=== PATIENT | male | born 1950 | race Caucasian/White ===

== ENCOUNTER 2016-12-01 19:53 | Observation (INO) | payer MEDICARE, OTHER ==
[~2016-12-01] VITALS: Ht 177.8 cm; Wt 72.3 kg
[2016-12-01] MEDS ORDERED: NITROGLYCERIN 2% 1 GM OINT PKT TD STA (20:09)
[2016-12-01] MEDS ORDERED: ASPIRIN 81 MG TAB PO STA (20:09)
[2016-12-01] MEDS ORDERED: NICARDipine HCL 30 MG CAPSULE PO ONE (20:30)
[2016-12-01] MEDS ORDERED: NITROGLYCERIN (SL) 0.4 MG TAB SL PRN (20:30)
[2016-12-01 20:38] LABS: BASOPHILS % 0.5 % (0.0-2.0); EOSINOPHILS # 0.1 10^3/ul (0.0-0.5); EOSINOPHILS % 2.4 % (0.0-7.0); HEMATOCRIT 36.5 % (42.0-52.0); HEMOGLOBIN 12.3 g/dl (14.0-18.0); LYMPHOCYTES # 1.1 10^3/ul (0.8-2.9); LYMPHOCYTES % 18.5 % (15.0-51.0); MEAN CORPUSCULAR HGB CONC 33.5 g/dl (32.0-37.0); MEAN CORPUSCULAR VOLUME 95.4 fl (82.0-101.0); MEAN PLATELET VOLUME 7.3 fl (7.4-10.4); MONOCYTE # 0.5 10^3/ul (0.3-0.9); MONOCYTES % 8.5 % (0.0-11.0); NEUTROPHIL # 4.4 10^3/ul (1.6-7.5); NEUTROPHILS % 70.1 % (39.0-77.0); PLATELET COUNT 207 10^3/UL (140-440); RED BLOOD COUNT 3.83 10^6/ul (4.70-6.10); RED CELL DISTRIBUTION WIDTH 13.8 % (11.5-14.5); UNCORRECTED WBC 6.2 10^3/ul (4.8-10.8); WHITE BLOOD COUNT 6.2 10^3/ul (4.8-10.8)
[2016-12-01] MEDS ORDERED: AMIO200T2 PO (20:39)
[2016-12-01] MEDS ORDERED: ALDS PO (20:40)
[2016-12-01] MEDS ORDERED: CARV25TA79 PO (20:40)
[2016-12-01] MEDS ORDERED: BENA10TA48 PO (20:40)
[2016-12-01 20:41] LABS: CONDITION 1
[2016-12-01] MEDS ORDERED: RIVA20TA PO (20:41)
[2016-12-01 20:43] LABS: INR 0.97; PROTIME 12.9 Sec (12.2-14.2)
[2016-12-01 20:44] LABS: PARTIAL THROMBOPLASTIN TIME 28.7 Sec (25.0-35.0)
--- NOTE | 2016-12-01 20:44 | RADRPT ---
PROCEDURE: XR Chest. CLINICAL INDICATION: Chest pain. TECHNIQUE: Single frontal view of the chest was obtained COMPARISON: 07/21/2007. FINDINGS: Left anterior chest wall single chamber cardiac pacer, with abandoned lead tip over the right atrium . Active lead tip is also over the right atrium, and pacing lead appears intact. Cardiac pacer has been exchanged over interval since 07/21/2007. Cardiomegaly. Hyperinflation of likely COPD with changes of centrolobular emphysema. Lungs are otherwise clear. N odular density over the left heart border likely represents a nipple shadow. There is no pleural effusion or pneumothorax. IMPRESSION: No acute disease. RPTAT: [facility] Physician Christina Date Time Electronically viewed and signed by Physician Christina on 12/01/2016 20:44 RS/
[2016-12-01 20:55] LABS: POTASSIUM 4.1 mmol/L (3.5-5.1)
[2016-12-01 20:58] LABS: CREATININE 1.55 mg/dl (0.61-1.24)
[2016-12-01 20:59] LABS: CALCIUM 9.2 mg/dl (8.4-10.2)
[2016-12-01 21:10] LABS: TROPONIN-I 0.024 ng/ml (0.00-0.12)
[2016-12-01] MEDS ORDERED: LABETALOL HCL 20MG INJ IV ONE (21:30)
[2016-12-01] MEDS ORDERED: ACETAMINOPHEN 325 MG TAB PO PRN (21:30)
[2016-12-01] MEDS ORDERED: ONDANSETRON 4 MG INJ IV PRN (21:30)
[2016-12-01] MEDS ORDERED: morphine 4 MG/ML VIAL IV STA (21:50)
[2016-12-01] MEDS ORDERED: ONDANSETRON 4 MG INJ IV STA (21:50)
--- NOTE | 2016-12-01 22:09 | ERA ---
ER Documentation Chief Complaint Date/Time DATE: 12/01/16 TIME: 22:06 Chief Complaint bib ra c/o foot pain, now adds c/o Chest tightness, nausea HPI Patient is a 65-year-old male with coronary disease and smoking who presents with chest pain and shortness of breath. The patient was brought in by ambulance. The symptoms started yesterday. He recently lost his place to stay and for the past few days has been homeless. He has bilateral feet pain. He has no treatment as of yet. He does have previous cardiac surgery with AICD placement. ROS All systems reviewed and are negative except as per history of present illness. Medications Home Meds Reported Medications Rivaroxaban* (Xarelto*) 20 Mg Tablet, 20 MG PO WITH DINNER, TAB 12/01/16 Carvedilol* (Carvedilol*) 25 Mg Tablet, 25 MG PO BID, #60 TAB 12/01/16 Benazepril Hcl* (Benazepril Hcl*) 10 Mg Tablet, 10 MG PO BID, #60 TAB 12/01/16 Spironolactone* (Aldactone*) 5 Mg/Ml (COMPOUNDED) Susp, 2.5 MG PO DAILY for 30 Days, BOTTLE (COMPOUNDED) 12/01/16 Amiodarone Hcl* (Amiodarone Hcl*) 200 Mg Tablet, 200 MG PO DAILY, #30 TAB 12/01/16 Allergies Allergies: Coded Allergies: No Known Drug Allergy (Verified Allergy, Mild, 12/01/16) PMhx/Soc History of Surgery: Yes (pacemaker) Anesthesia Reaction: No Hx Cardiac Disorders: Yes (implanted pacemaker/defibrilator, htn) Hx Miscellaneous Medical Probl: Yes (Hep C) Hx Alcohol Use: Yes (once per month) 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 Neck: Full range of motion..~ No meningismus. Resp: Clear to auscultation bilaterally Cardio: Regular rate and rhythm, no murmurs Abd: Soft, non tender, non distended. Normal bowel sounds Skin: No petechiae or rashes Back: No midline or flank tenderness Ext: No cyanosis, or edema Neur: Awake and alert Psych: Normal Mood and Affect Result Diagram: 12/01/16202212/01/162022 Results 24 hrs Laboratory Tests Test 12/01/16 20:23 Activated Partial Thromboplast Time 28.7Sec Anion Gap 15 Basophils # 0.010^3/ul Basophils % 0.5% Blood Morphology Comment Blood Urea Nitrogen 28mg/dl Calcium Level 9.2mg/dl Carbon Dioxide Level 27mmol/L Chloride Level 105mmol/L Creatinine 1.55mg/dl Eosinophils # 0.110^3/ul Eosinophils % 2.4% Glucose Level 92mg/dl Hematocrit 36.5% Hemoglobin 12.3g/dl INR International Normalized Ratio 0.97 Lymphocytes # 1.110^3/ul Lymphocytes % 18.5% Mean Corpuscular Hemoglobin 32.0pg Mean Corpuscular Hemoglobin Concent 33.5g/dl Mean Corpuscular Volume 95.4fl Mean Platelet Volume 7.3fl Monocytes # 0.510^3/ul Monocytes % 8.5% Neutrophils # 4.410^3/ul Neutrophils % 70.1% Nucleated Red Blood Cells # 0.010^3/ul Nucleated Red Blood Cells % 0.0/100WBC Platelet Count 34700^3/UL Potassium Level 4.1mmol/L Prothrombin Time 12.9Sec Prothrombin Time Ratio 1.0 Red Blood Count 3.8310^6/ul Red Cell Distribution Width 13.8% Sodium Level 143mmol/L Troponin I 0.024ng/ml White Blood Count 6.210^3/ul Current Medications Medications (Trade) Dose Ordered Sig/Bandar Route PRN Reason Start Time Stop Time Status Last Admin Dose Admin Nicardipine HCl (Cardene) 30 mg ONCE ONCE PO 12/01/16 20:30 12/01/16 20:31 DC 12/01/16 21:16 Aspirin (Aspirin) 162 mg ONCE STAT PO 12/01/16 20:09 12/01/16 20:10 DC 12/01/16 21:17 Nitroglycerin (Nitroglycerin 2% Oint) 1 inch ONCE STAT TD 12/01/16 20:09 12/01/16 20:10 DC 12/01/16 21:16 Nitroglycerin (Nitroglycerin (Sl Tab) 0.4 Mg) 1 tab Q5M UP TO 3 DOSES PRN SL CHEST PAIN 12/01/16 20:30 Labetalol HCl (Labetalol) 20 mg ONCE ONCE IV 12/01/16 21:30 12/01/16 21:31 DC Ondansetron HCl (Zofran Inj) 4 mg ER BRIDGE PRN IV NAUSEA AND/OR VOMITING 12/01/16 21:30 12/02/16 21:29 Acetaminophen (Tylenol Tab) 650 mg ER BRIDGE PRN PO MILD PAIN/FEVER 12/01/16 21:30 12/02/16 21:29 Morphine Sulfate (morphine) 4 mg ONCE STAT IV 12/01/16 21:50 12/01/16 21:51 DC 12/01/16 22:01 Ondansetron HCl (Zofran Inj) 4 mg ONCE STAT IV 12/01/16 21:50 12/01/16 21:51 DC 12/01/16 22:01 Procedures/MDM EKG #1 read by me: Rate/Rhythm: Regular rate and rhythm at a rate of 72 Intervals: Normal Impression: Biphasic T waves in V2 and V3 concerning for ischemia EKG #2 read by me: Rate/Rhythm: Paced rhythm at a rate of 70 Intervals: Normal Impression: Paced rhythm with negative Sgarbossa criteria Chest x-ray negative per radiology. Smoking Cessation Therapy: Pt. was lectured for greater than 3 minutes on the health risks of continued smoking and the benefits of cessation. Patient is a 65-year-old male with coronary disease and smoking who presents with chest pain. He feels like there is a elephant sitting on his chest. Given his age and cardiac risk factors I am concerned about possible acute ischemia. Initial troponin is within normal limits. The patient will be admitted to a telemetry bed under the care of Dr. Garner. The patient was given aspirin, nitroglycerin, and morphine. At this point I doubt pneumonia, pneumothorax, pulmonary embolism, or aortic dissection. I am concerned for acute coronary syndrome. The patient also has acute hypertension. I initially ordered labetalol but the blood pressure had improved upon recheck and this was held. Departure Diagnosis: Primary Impression: Chest pain Qualified Code: R07.9 - Chest pain, unspecified type Additional Impression: Hypertension Qualified Code: I10 - Essential hypertension Condition: MP Tran MD Dec 01, 2016 22:09
[2016-12-02] VITALS (11 sets, daily range): BP systolic 94–132; BP diastolic 50–70; PULSE 62–73; RESP 17–22; Ht 177.8 cm; Wt 72.3 kg
[2016-12-02] MEDS ORDERED: ACETAMINOPHEN 325 MG TAB PO PRN (02:30)
[2016-12-02] MEDS ORDERED: hydrALAzine 20 MG INJ IV PRN (02:30)
[2016-12-02 03:01] LABS: BASOPHILS % 0.4 % (0.0-2.0); CONDITION 1; EOSINOPHILS # 0.2 10^3/ul (0.0-0.5); HEMATOCRIT 34.4 % (42.0-52.0); HEMOGLOBIN 11.5 g/dl (14.0-18.0); LYMPHOCYTES # 1.5 10^3/ul (0.8-2.9); LYMPHOCYTES % 27.8 % (15.0-51.0); MEAN CORPUSCULAR HEMOGLOBIN 31.8 pg (29.0-33.0); MEAN CORPUSCULAR HGB CONC 33.5 g/dl (32.0-37.0); MEAN CORPUSCULAR VOLUME 94.9 fl (82.0-101.0); MEAN PLATELET VOLUME 7.2 fl (7.4-10.4); MONOCYTE # 0.5 10^3/ul (0.3-0.9); MONOCYTES % 9.3 % (0.0-11.0); NEUTROPHIL # 3.1 10^3/ul (1.6-7.5); NEUTROPHILS % 59.5 % (39.0-77.0); PLATELET COUNT 204 10^3/UL (140-440); RED BLOOD COUNT 3.62 10^6/ul (4.70-6.10); RED CELL DISTRIBUTION WIDTH 13.6 % (11.5-14.5); UNCORRECTED WBC 5.3 10^3/ul (4.8-10.8); WHITE BLOOD COUNT 5.3 10^3/ul (4.8-10.8)
[2016-12-02 03:27] LABS: TROPONIN-I 0.021 ng/ml (0.00-0.12)
[2016-12-02 03:43] LABS: POTASSIUM 3.9 mmol/L (3.5-5.1)
[2016-12-02 03:45] LABS: CK-MB 2.78 ng/ml (0.0-2.4); CREATININE 1.29 mg/dl (0.61-1.24)
[2016-12-02 03:46] LABS: CHOL/HDL RATIO 2.2 RATIO; MAGNESIUM 1.6 mg/dl (1.7-2.5); PHOSPHORUS 3.1 mg/dl (2.5-4.9)
[2016-12-02 04:19] LABS: THYROID STIMULATING HORMONE 4.78 MIU/L (0.465-4.680)
[2016-12-02 06:02] LABS: CALCIUM 8.8 mg/dl (8.4-10.2)
--- NOTE | 2016-12-02 06:15 | HP ---
Date/Time of Note Date/Time of Note DATE: 12/02/16 TIME: 05:57 Assessment/Plan VTE Prophylaxis VTE Prophylaxis Intervention: LMWH Lines/Catheters IV Catheter Type (from Nrsg): Saline Lock Assessment/Plan Assessment/Plan IMPRESSION 1. Chest Pain with abnormal EKG 2. Hx of Probable CAD 3. Hypertensive Urgency 4. Pacemaker 5. CKD 6. 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 SW consult for homelessness HPI/ROS Admit Date/Time Admit Date/Time Dec 01, 2016 at 21:20 Hx of Present Illness Patient is a 65-year-old male with CAD, HTN, AICD, smoking Hep C and Heroin use (last 18 years ago) who presents with chest pain, shortness of breath and pain in both of his feet. The symptoms started yesterday. Chest pain is described as sharp and tightness. SOB is somehow worse with exertion. Denied N/V, diaphoresis , fever, chills. He recently lost his place to stay and for the past few days has been homeless. ER Course: BP 198/90 rest of vitals WNL. First trop neg and first EKG showed Biphasic T waves in V2 and V3. Was given 30mg of oral cardene, ASA and NTG. CXR no acute findings. . . PMH/Family/Social Past Medical History Medical History: coronary artery disease, hypertension Past Surgical History Past Surgical Hx: other (AICD) Social History Alcohol Use: occasionally Smoking Status: Current every day smoker Drug Use: other (Heroin 18 years ago) Exam/Review of Systems Vital Signs Vitals Vital Signs Date Time Temp Pulse Resp B/P Pulse Ox O2 Delivery O2 Flow Rate FiO2 12/02/16 04:55 64 12/02/16 04:00 98.3 20 132/63 98 12/02/16 01:40 Room Air Intake and Output 12/01/16 12/01/16 12/02/16 15:00 23:00 07:00 Intake Total 240 ml Output Total 250 ml Balance -10 ml Exam Constitutional: alert, oriented, well developed Head: atraumatic, normocephalic Eyes: EOMI, PERRL Respiratory: clear to auscultation, normal air movement Cardiovascular: nl pulses, regular rate and rhythm Gastrointestinal: non-tender, soft Extremities: normal pulses Labs Result Diagram: 12/02/1624412/02/16244 Medications Medications Current Medications Amiodarone HCl (Cordarone) 200 mg DAILY PO ; Start 12/02/16 at 09:00 Benazepril HCl (Lotensin) 10 mg BID PO ; Start 12/02/16 at 09:00 Carvedilol (Coreg) 25 mg BID PO ; Start 12/02/16 at 09:00 Spironolactone (Aldactone Susp (Ped)) 2.5 mg DAILY PO ; Start 12/02/16 at 09:00 Atorvastatin Calcium (Lipitor) 20 mg HS PO ; Start 12/02/16 at 21:00 Aspirin (Aspirin) 81 mg DAILY PO ; Start 12/02/16 at 09:00 Acetaminophen (Tylenol Tab) 650 mg Q6H PRN PO PAIN AND OR ELEVATED TEMP; Start 12/02/16 at 02:30 Famotidine (Pepcid) 20 mg BID PO ; Start 12/02/16 at 09:00 Hydralazine HCl (Apresoline) 10 mg Q4H PRN IV SBP > 160; Start 12/02/16 at 02:30 ARNOLD WOOD MD Dec 02, 2016 06:08
[2016-12-02] MEDS: ASPIRIN 81 MG TAB PO SCH (08:06)
[2016-12-02] MEDS: AMIODARONE 200 MG TAB PO SCH (08:06)
[2016-12-02] MEDS: SPIRONOLACTONE (5 MG/ML PO SYG) PO SCH (08:06)
[2016-12-02] MEDS ORDERED: FAMOTIDINE 20 MG TAB PO SCH (09:00)
[2016-12-02] MEDS ORDERED: BENAZEPRIL 10 MG TAB PO SCH (09:00)
[2016-12-02 09:54] LABS: TROPONIN-I 0.025 ng/ml (0.00-0.12)
[2016-12-02 09:55] LABS: CK-MB 2.75 ng/ml (0.0-2.4)
--- NOTE | 2016-12-02 14:30 | PN ---
Date/Time of Note Date/Time of Note DATE: 12/02/16 TIME: 14:16 Assessment/Plan VTE Prophylaxis VTE Prophylaxis Intervention: other (xarelto) Lines/Catheters IV Catheter Type (from Nrsg): Saline Lock Assessment/Plan Assessment/Plan 1. Chest Pain, follow up with cardiology 2. Normal coronary angiography in [facility] about 8-10 years ago per patient 3. Hypertension, low BP today, decrease benazepril 4. s/p AICD 5 Paroxysmal atrial fibrillation, sinus now, on coreg, amiodarone and xarelto 6. CKD, stage 3, follow up with BMP 7. Homeless Subjective 24 Hr Interval Summary Free Text/Dictation still ahving pressure like chest pain at lower retrosternal area Exam/Review of Systems Vital Signs Vitals Vital Signs Date Time Temp Pulse Resp B/P Pulse Ox O2 Delivery O2 Flow Rate FiO2 12/02/16 12:53 62 12/02/16 11:42 97.9 17 94/50 97 12/02/16 01:40 Room Air Intake and Output 12/01/16 12/01/16 12/02/16 15:00 23:00 07:00 Intake Total 240 ml Output Total 250 ml Balance -10 ml Exam Constitutional: alert, oriented, well developed Psych: nl mood/affect, no complaints Head: atraumatic, normocephalic Eyes: EOMI, PERRL, nl conjunctiva, nl lids, nl sclera ENMT: mucosa pink and moist, nl external ears & nose, nl lips & teeth, nl nasal mucosa & septum Neck: non-tender, supple Respiratory: clear to auscultation, normal air movement, No congested cough, No crackles/rales, No diminished breath sounds, No intercostal retraction, No labored breathing, No respirations, No tactile fremitus, No wheezing Cardiovascular: nl pulses, regular rate and rhythm, No S3, No S4, No bruits, No diastolic murmur, No edema, No gallop, No irregular rhythm, No jugular venous distention (JVD), No murmurs/extra sounds, No rub, No systolic murmur Gastrointestinal: nl liver, spleen, non-tender, soft, No ascites, No bowel sounds, No distended, No firm, No hepatomegaly, No mass , No rebound or guarding, No splenomegaly, No surgical scars, No tender Musculoskeletal: nl extremities to inspection Extremities: normal pulses, No calf tenderness, No clubbing, No cyanosis, No edema, No palpable cord, No pitting pedal edema, No tenderness Neurological: COMPUTING SYSTEMS MECHANIC II-XII intact, nl mental status, nl speech, nl strength Skin: nl turgor, rash or lesions Lymph: nl lymph nodes Results Result Diagram: 12/02/16 0245 12/02/16 0245 Results 24 hrs Laboratory Tests Test 12/01/16 20:23 12/02/16 02:45 12/02/16 09:05 Activated Partial Thromboplast Time 28.7 Anion Gap 15 14 Basophils # 0.0 0.0 Basophils % 0.5 0.4 Blood Morphology Comment Blood Urea Nitrogen 28 H 26 H Calcium Level 9.2 8.8 Carbon Dioxide Level 27 27 Chloride Level 105 105 Creatinine 1.55 H 1.29 H Eosinophils # 0.1 0.2 Eosinophils % 2.4 3.0 Glucose Level 92 95 Hematocrit 36.5 L 34.4 L Hemoglobin 12.3 L 11.5 L INR International Normalized Ratio 0.97 Lymphocytes # 1.1 1.5 Lymphocytes % 18.5 27.8 Mean Corpuscular Hemoglobin 32.0 31.8 Mean Corpuscular Hemoglobin Concent 33.5 33.5 Mean Corpuscular Volume 95.4 94.9 Mean Platelet Volume 7.3 L 7.2 L Monocytes # 0.5 0.5 Monocytes % 8.5 9.3 Neutrophils # 4.4 3.1 Neutrophils % 70.1 59.5 Nucleated Red Blood Cells # 0.0 0.0 Nucleated Red Blood Cells % 0.0 0.0 Platelet Count 207 204 Potassium Level 4.1 3.9 Prothrombin Time 12.9 Prothrombin Time Ratio 1.0 Red Blood Count 3.83 L 3.62 L Red Cell Distribution Width 13.8 13.6 Sodium Level 143 142 Troponin I 0.024 0.021 0.025 White Blood Count 6.2 5.3 Cholesterol Level 136 Cholesterol/HDL Ratio 2.2 Creatine Kinase 134 121 Creatine Kinase Index 2.1 2.3 Creatinine Kinase MB (Mass) 2.78 H 2.75 H HDL Cholesterol 60 Hemoglobin A1c 6.1 H LDL Cholesterol, Calculated 71 Magnesium Level 1.6 L Phosphorus Level 3.1 Thyroid Stimulating Hormone (TSH) 4.780 H Triglycerides Level 26 Medications Medications Current Medications Amiodarone HCl (Cordarone) 200 mg DAILY PO Last administered on 12/02/16 08:06 ; Admin Dose 200 MG; Start 12/02/16 at 09:00 Benazepril HCl (Lotensin) 10 mg BID PO Last administered on 12/02/16 08:05; Admin Dose 10 MG; Start 12/02/16 at 09:00 Carvedilol (Coreg) 25 mg BID PO Last administered on 12/02/16 08:06; Admin Dose 25 MG; Start 12/02/16 at 09:00 Spironolactone (Aldactone Susp (Ped)) 2.5 mg DAILY PO Last administered on 08:06; Admin Dose 2.5 MG; Start 12/02/16 at 09:00 Atorvastatin Calcium (Lipitor) 20 mg HS PO ; Start 12/02/16 at 21:00 Aspirin (Aspirin) 81 mg DAILY PO Last administered on 12/02/16 08:06; Admin Dose 81 MG; Start 12/02/16 at 09:00 Acetaminophen (Tylenol Tab) 650 mg Q6H PRN PO PAIN AND OR ELEVATED TEMP; Start 12/02/16 at 02:30 Famotidine (Pepcid) 20 mg BID PO Last administered on 12/02/16 08:07; Admin Dose 20 MG; Start 12/02/16 at 09:00 Hydralazine HCl (Apresoline) 10 mg Q4H PRN IV SBP > 160; Start 12/02/16 at 02:30 HA AWAN MD Dec 02, 2016 14:28
--- NOTE | 2016-12-02 15:10 | CONS ---
DATE OF ADMISSION: 12/01/2016 DATE OF CONSULTATION: 12/02/2016 REASON FOR CONSULTATION: Chest pain, assess for acute coronary syndrome. REQUESTING PHYSICIAN: Dr. Garner from the hospitalist service. HISTORY OF PRESENT ILLNESS: Mr. Haney is a 65-year-old male with a history of coronary artery disease, hypertension, permanent pacemaker, question ICD per chart biopsy, who initially presented with complaints of chest pain, shortness of breath, pain in his feet. Upon arrival, temperature 98.9, blood pressure 198 /90, pulse 79, respirations 20, saturating 98%. The patient's labs revealed a white count of 143, potassium 4.1, creatinine 1.55, BUN of 28, troponin negative. TSH of 4.78. LDL 71, HDL 60. White cell count 6.2, hemoglobin 12.3 , platelet count 207. INR 0.97. The patient underwent a chest x-ray revealing left anterior chest wall single chamber cardiac pacemaker, cardiomegaly, hyperinflation, likely consistent with COPD. The patient's electrocardiogram revealed V paced rhythm, rate of 70 ____. The patient subsequently admitted to the floor and since admit to the floor, has had additional troponin negative, 2 negative troponins. The patient continues to complain of intermittent substernal chest pain described as a pressure-like sensation. PAST MEDICAL HISTORY: As above in HPI with the patient additionally being on medications such as Xarelto, concerning for possible cardiac arrhythmia. MEDICATIONS CURRENTLY IN HOSPITAL: 1. Lipitor 20 mg at bedtime. 2. Xarelto 20 mg daily. 3. Amiodarone 10 mg daily. 4. Benazepril 10 mg p.o. b.i.d. 5. Carvedilol 25 mg p.o. b.i.d. 6. Aldactone 2.5 mg daily. 7. Aspirin 81 mg daily. 8. Pepcid 20 mg p.o. b.i.d. 9. Tylenol p.r.n. 10. Hydralazine p.r.n. 11. Sublingual nitroglycerin p.r.n. ALLERGIES: NO KNOWN DRUG ALLERGIES. SOCIAL HISTORY: Positive tobacco. No ETOH or illicit drug use. FAMILY HISTORY: No history of sudden cardiac or early CAD. REVIEW OF SYSTEMS: As above in HPI. CONSTITUTIONAL: No fevers, chills. PULMONARY: Shortness of breath. CARDIOVASCULAR: Chest pain. GASTROINTESTINAL: No vomiting. GENITOURINARY: No hematuria. MUSCULOSKELETAL: Degenerative joint disease. PSYCHIATRIC: No documented psychiatric history. NEUROLOGIC: No documented history of CVA. ENDOCRINE: No documented history of diabetes mellitus. PHYSICAL EXAMINATION: VITAL SIGNS: Temperature 97.7, blood pressure 94/50, pulse 62, respirations 17 , saturating 97%. GENERAL: The patient is alert, awake, in no acute distress. NECK: JVP approximately 8 cm of water. CHEST: Fair movement throughout with mildly decreased breath sounds at bases bilaterally. HEART: Regular rate and rhythm. S1, S2, I/ systolic murmur, nondisplaced PMI. ABDOMEN: Positive bowel sounds, soft. EXTREMITIES: No edema, 1+ pulses bilaterally, posterior tibial. LABORATORY DATA: As above in HPI with most recently from today, white count 5.3 , hemoglobin 11.5, platelet count 204. Sodium 142, potassium ____, creatinine 0.29, BUN of 26. INR 0.97. IMAGING STUDIES: As above in HPI. No further imaging studies for my review at this time. ECG: As above in HPI. No further electrocardiograms for my review at this time. IMPRESSION: 1. Chest pain, assess for acute coronary syndrome. 2. Abnormal electrocardiogram, assess for acute coronary syndrome. 3. History of permanent pacemaker, question AICD. 4. History of cardiac arrhythmia by medications. 5. Ongoing tobacco usage. 6. Hypertension. 7. Dyslipidemia. 8. Anemia. 9. Renal failure. RECOMMENDATIONS: 1. At this time, would maintain the patient on telemetry monitoring to follow rhythm and rate control closely. 2. Would check an additional troponin to assure the patient's chest pain was not due to an acute coronary syndrome such as an acute myocardial infarction. 3. We will continue the patient's baseline amiodarone and Xarelto for possible cardiac arrhythmia. 4. Continue the patient's benazepril and carvedilol control of blood pressure and heart rate. Continue aspirin prophylaxis against cardiovascular events and give patient sublingual nitroglycerin for recurrent episodes of chest pain. 5. Continue the patient's statin therapy and adjust it according to a fasting lipid panel that has to be checked. 6. We will follow the patient's 2D echo for assessment of ejection fraction, wall motion and any major abnormalities. 7. Given patient's comorbid risk factors, I believe the patient will benefit from further inpatient risk stratification with an inpatient Lexiscan stress test. Thank you for allowing me to take part in the care of this patient. I will continue to follow very closely with you with further recommendations to be made as the patient progresses through his inpatient hospital clinical course. Dictated By: GERDA ESPINOSA/VIANCA Conf#: [id number] DID#: [id number] CC: ARNOLD GARNER MD;*EndCC* MTDD
[2016-12-02 15:30] LABS: POTASSIUM 4.2 mmol/L (3.5-5.1)
[2016-12-02 15:32] LABS: CREATININE 1.46 mg/dl (0.61-1.24)
[2016-12-02 15:33] LABS: CALCIUM 8.9 mg/dl (8.4-10.2)
[2016-12-02] MEDS ORDERED: RIVAROXABAN 20 MG TABLET PO SCH (17:55)
--- NOTE | 2016-12-02 20:15 | RADRPT ---
Echocardiogram Report Patient Name: DYLON HASSAN Gender: Male Date: 1950 Study Date: 02-Dec-2016 Holistic Nutritionist: Brayan Cruz [facility] Location: 522 Ref. Physician: ARNOLD WOOD Quality: Good Procedures: Transthoracic echocardiogram with complete 2D, M-Mode, and doppler examination. Indications: Chest Pain. 2D/M Mode Doppler Measurement Value Normal Ranges Measurement Value Normal Ranges LVIDd 2D 6.3 3.5 - 5.6 cm AV Peak Mp 1.9 m/sec LVIDs 2D 4.4 2.1 - 4.1 cm AV Peak PG 13.9 mmHg LVPWd 2D 0.9 0.6 - 1.1 cm LVOT Peak Mp 1.3 m/sec IVSd 2D 0.9 0.6 - 1.1 cm LVOT Peak PG 6.5 mmHg AoR Diam 2D 3.1 2.0 - 3.7 cm MV E Peak Mp 0.7 m/sec EDV 2D 204.4 cm3 MV A Peak Mp 0.5 m/sec ESV 2D 84.7 cm3 MV E/A 1.6 LA Dimen 2D 4.7 2.3 - 4.0 cm MV Decel Time 373 msec MV Decel Drew 2 MV E/A 1.6 TR Peak Mp 3.1 m/sec TR Peak PG 39.5 mmHg RVSP 43.0 mmHg Findings Left Ventricle: Normal left ventricular wall thickness. Mild enlargement of left ventricle cavity. Moderate global left ventricular systolic dysfunction. Ejection fraction is visually estimated at 3540 %. Right Ventricle: Pacemaker right heart. Left Atrium: There is moderate enlargement of left atrium. Right Atrium: There is moderate enlargement of right atrium. Linear artifact in right atrium suggestive of pacer lead or ICD lead. Mitral Valve: Mitral valve leaflets appear mildly thickened. Trace mitral regurgitation. Aortic Valve: Normal appearance of the aortic valve. No significant aortic stenosis or insufficiency. Tricuspid Valve: Estimated peak PA systolic pressure 43 mmHg. There is moderate tricuspid regurgitation. Pericardium: Normal pericardium with no significant pericardial effusion. Aorta: Normal aortic root. IVC: Normal size and normal respiratory collapse consistent with normal right atrial pressure. Conclusions 1.Normal left ventricular wall thickness. Mild enlargement of left ventricle cavity. Moderate global left ventricular systolic dysfunction. Ejection fraction is visually estimated at 35-40 %. 2.Pacemaker right heart. 3.There is moderate enlargement of left atrium. 4.There is moderate enlargement of right atrium. Linear artifact in right atrium suggestive of pacer lead or ICD lead. 5.Mitral valve leaflets appear mildly thickened. Trace mitral regurgitation. 6.Estimated peak PA systolic pressure 43 mmHg. There is moderate tricuspid regurgitation. Electronically Signed By: Abdias Palacio 02-Dec-2016 20:14:17 -0800 Patient Name: DYLON HASSAN Study Date: 02-Dec-[id number]
[2016-12-02] MEDS ORDERED: ATORVASTATIN 20 MG TAB PO SCH (21:00)
[2016-12-03] VITALS (8 sets, daily range): BP systolic 127–144; BP diastolic 62–82; PULSE 63–76; RESP 18–22
[2016-12-03] MEDS ORDERED: PANTOPRAZOLE (EC) 40 MG TAB PO SCH (06:00)
[2016-12-03 06:32] LABS: CHOL/HDL RATIO 2.6 RATIO
[2016-12-03 06:44] LABS: TROPONIN-I 0.018 ng/ml (0.00-0.12)
[2016-12-03] MEDS: ASPIRIN 81 MG TAB PO SCH (08:19)
[2016-12-03] MEDS: SPIRONOLACTONE (5 MG/ML PO SYG) PO SCH (08:19)
[2016-12-03] MEDS: AMIODARONE 200 MG TAB PO SCH (08:20)
[2016-12-03] MEDS ORDERED: BENAZEPRIL 10 MG TAB PO SCH (09:00)
[2016-12-03] MEDS ORDERED: REGADENOSON 0.4 MG/5 ML SYG ONE (10:36)
--- NOTE | 2016-12-03 11:16 | CONS ---
Date/Time of Note Date/Time of Note DATE: 12/03/16 TIME: 11:11 Assessment/Plan Assessment/Plan Chief Complaint/Hosp Course IMPRESSION: 1. Chest pain, assess for acute coronary syndrome.-negative tropnin x 3 2. Abnormal electrocardiogram, assess for acute coronary syndrome. 3. History of permanent pacemaker, question AICD. 4. History of cardiac arrhythmia by medications. 5. Ongoing tobacco usage. 6. Hypertension. 7. Dyslipidemia. 8. Anemia. 9. Renal failure. Recc: -Tele -serial ecg's -Continue asa/statin -Continue benazepril -Continue xarelto/amio -Lexiscan stress test today Problems: Consultation Date/Type/Reason Admit Date/Time Dec 01, 2016 at 21:20 Initial Consult Date 12/02/2016 Type of Consultation: Cardiology Reason for Consultation Chest pain Referring Provider: ARNOLD WOOD MD Exam/Review of Systems Vital Signs Vitals Vital Signs Date Time Temp Pulse Resp B/P Pulse Ox O2 Delivery O2 Flow Rate FiO2 12/03/16 08:28 76 12/03/16 07:21 98.3 18 141/77 99 12/02/16 01:40 Room Air Intake and Output 12/02/16 12/02/16 12/03/16 15:00 23:00 07:00 Intake Total 700 ml Balance 700 ml Exam Review of Systems: CONSTITUTIONAL: No fevers, chills. PULMONARY: No sob CARDIOVASCULAR: N intermittent chest pain GASTROINTESTINAL: No nausea/vomiting. GENITOURINARY: No hematuria/dysuria. MUSCULOSKELETAL: No myagias/arthalgias. PSYCHIATRIC: The patient denies depression. NEUROLOGIC: No weakness Constitutional: alert, oriented Psych: no complaints Head: normocephalic ENMT: mucosa pink and moist Neck: jvd (8 cm water), supple Respiratory: clear to auscultation Cardiovascular: regular rate and rhythm Gastrointestinal: non-tender, soft Musculoskeletal: muscle tone (normal) Extremities: other (No focal deficits) Results Result Diagram: 12/02/16 0245 12/02/16 1500 Results 24 hrs Laboratory Tests Test 12/02/16 15:00 12/03/16 05:55 Anion Gap 11 Blood Urea Nitrogen 24 H Calcium Level 8.9 Carbon Dioxide Level 27 Chloride Level 105 Creatinine 1.46 H Glucose Level 114 Potassium Level 4.2 Sodium Level 139 Cholesterol Level 145 Cholesterol/HDL Ratio 2.6 HDL Cholesterol 54 LDL Cholesterol, Calculated 74 Triglycerides Level 83 Troponin I 0.018 Medications Medications Current Medications Amiodarone HCl (Cordarone) 200 mg DAILY PO Last administered on 12/03/16 08:20 ; Admin Dose 200 MG; Start 12/02/16 at 09:00 Spironolactone (Aldactone Susp (Ped)) 2.5 mg DAILY PO Last administered on 08:19; Admin Dose 2.5 MG; Start 12/02/16 at 09:00 Atorvastatin Calcium (Lipitor) 20 mg HS PO Last administered on 12/02/16 20:55 ; Admin Dose 20 MG; Start 12/02/16 at 21:00 Aspirin (Aspirin) 81 mg DAILY PO Last administered on 12/03/16 08:19; Admin Dose 81 MG; Start 12/02/16 at 09:00 Acetaminophen (Tylenol Tab) 650 mg Q6H PRN PO PAIN AND OR ELEVATED TEMP; Start 12/02/16 at 02:30 Hydralazine HCl (Apresoline) 10 mg Q4H PRN IV SBP > 160; Start 12/02/16 at 02:30 Benazepril HCl (Lotensin) 10 mg DAILY PO Last administered on 12/03/16 08:20; Admin Dose 10 MG; Start 12/03/16 at 09:00 Pantoprazole (Protonix Tab) 40 mg DAILY@06 PO Last administered on 12/03/16 05: 54; Admin Dose 40 MG; Start 12/03/16 at 06:00 GERDA ACKERMAN Dec 03, 2016 11:16
--- NOTE | 2016-12-03 13:01 | RADRPT ---
PROCEDURE: Lexiscan myocardial perfusion study CLINICAL INDICATION: 65 -year-old patient complaining of chest pain. TECHNIQUE: Lexiscan 0.4 mg intravenously separate acquisition gated myocardial perfusion SPECT usi ng Tc 99m Myoview 30.8 mCi intravenously at stress and Tc-99m Myoview, 9.6 mCi intravenously at rest was performed using the rest/stress sequence. Poststress Myoview SPECT images were obtained in the supine position. COMPARISON: No prior studies. FINDINGS: Perfusion images reveal mild nonreversible perfusion abnormality in the inferior wall. Lexiscan post stress gated SPECT images demonstrate moderate hypokinesis of the left ventricle. IMPRESSION: 1. No evidence of stress-induced ischemia. 2. Moderate hypokinesis of the left ventricle. 3. The left ventricle ejection fraction at stress is 34%. A call report was made to Dr. Palacio at 01:00 p.m. on December 03, 2016. RPTAT: HH .Ember Carson MD, MD Date Time Electronically viewed and signed by .Ember Carson MD, on 12/03/2016 13:00 .Christopher/
[2016-12-03] MEDS ORDERED: PANT40TA4 PO (14:30)
[2016-12-03] MEDS ORDERED: CARV3.1260 PO (14:30)
--- NOTE | 2016-12-03 14:40 | DS ---
Date/Time of Note Date/Time of Note DATE: 12/03/16 TIME: 14:31 Discharge Summary Admission/Discharge Info Admit Date/Time Dec 01, 2016 at 21:20 Discharge Date/Time Final Diagnosis 1. Chest Pain, negative stress test for ischemia 2. Congestive heart failure, systolic, chronic, stable, follow up with cardiology 3. Hypertension, low BP today, decrease benazepril 4. s/p AICD 5 Paroxysmal atrial fibrillation, sinus now, on coreg, amiodarone and xarelto 6. CKD, stage 3, follow up with PCP Patient Condition: Stable Procedures [place] [id number] Radiology Main Line: [phone] DIAGNOSTIC IMAGING REPORT Patient: DYLON HASSAN : 1950 Age: 65 Sex: M MR #: [id number] DOS: 12/03/16 1100 Ordering MD: GERDA PALACIO MD Location: [facility] PROCEDURE: Lexiscan myocardial perfusion study CLINICAL INDICATION: 65 -year-old patient complaining of chest pain. TECHNIQUE: Lexiscan 0.4 mg intravenously separate acquisition gated myocardial perfusion SPECT using Tc 99m Myoview 30.8 mCi intravenously at stress and Tc-99m Myoview, 9.6 mCi intravenously at rest was performed using the rest/stress sequence. Poststress Myoview SPECT images were obtained in the supine position. COMPARISON: No prior studies. FINDINGS: Perfusion images reveal mild nonreversible perfusion abnormality in the inferior wall. Lexiscan post stress gated SPECT images demonstrate moderate hypokinesis of the left ventricle. IMPRESSION: 1. No evidence of stress-induced ischemia. 2. Moderate hypokinesis of the left ventricle. 3. The left ventricle ejection fraction at stress is 34%. A call report was made to Dr. Palacio at 01:00 p.m. on December 03, 2016. RPTAT: HH .Ember Carson MD, MD Date Time Electronically viewed and signed by .Ember Carson MD, MD on 12/03/2016 13:00 .L/ CC: GERDA PALACIO of Present Illness . . Hospital Course 65 years old male with congestive heart failure but a normal coronary angiography about 8-10 years ago came in with retrosternal pressure like chest pain. Patient has negative troponin and no ischemia on stress thallium test. Both echo and stress thallium showed decreased LVEF, 34% on stress test. Patient is on appropriate treatment for congestive heart failure. I started him on protonix yesterday. Chest pain is much less according to the patient. 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 Home Meds Active Scripts Carvedilol* (Carvedilol*) 3.125 Mg Tablet, 3.125 MG PO BID for 60 Days, TAB Prov:HA AWAN MD 12/03/16 Pantoprazole* (Pantoprazole*) 40 Mg Tablet.dr, 40 MG PO DAILY@06 for 30 Days Prov:HA AWAN MD 12/03/16 Reported Medications Rivaroxaban* (Xarelto*) 20 Mg Tablet, 20 MG PO WITH DINNER, TAB 12/01/16 Carvedilol* (Carvedilol*) 25 Mg Tablet, 25 MG PO BID, #60 TAB 12/01/16 Benazepril Hcl* (Benazepril Hcl*) 10 Mg Tablet, 10 MG PO BID, #60 TAB 12/01/16 Spironolactone* (Aldactone*) 5 Mg/Ml (COMPOUNDED) Susp, 2.5 MG PO DAILY for 30 Days, BOTTLE (COMPOUNDED) 12/01/16 Amiodarone Hcl* (Amiodarone Hcl*) 200 Mg Tablet, 200 MG PO DAILY, #30 TAB 12/01/16 Follow-up Plan cardiology 1 week PCP 1 week Pending Labs Laboratory Tests Test 12/02/16 15:00 12/03/16 05:55 Anion Gap 11 (8-16) Blood Urea Nitrogen 24mg/dl (7-20) Calcium Level 8.9mg/dl (8.4-10.2) Carbon Dioxide Level 27mmol/L (21-31) Chloride Level 105mmol/L (97-110) Creatinine 1.46mg/dl (0.61-1.24) Glucose Level 114mg/dl (70-220) Potassium Level 4.2mmol/L (3.5-5.1) Sodium Level 139mmol/L (135-144) Cholesterol Level 145mg/dl (100-200) Cholesterol/HDL Ratio 2.6RATIO HDL Cholesterol 54mg/dl (30-78) LDL Cholesterol, Calculated 74mg/dl Triglycerides Level 83mg/dl (0-149) Troponin I 0.018ng/ml (0.00-0.12) HA AWAN MD Dec 03, 2016 14:40
--- NOTE | 2016-12-03 16:01 | CARRPT ---
DATE OF PROCEDURE: 12/03/2016 REASON FOR STRESS TESTING: Chest pain, assess for ischemia. BASELINE VITAL SIGNS AND ELECTROCARDIOGRAM: Pulse of 70, blood pressure 165/95. Electrocardiogram reveals sinus rhythm, first-degree AV block, right superior axis deviation with secondary repolariz ation abnormalities. PROCEDURE: The patient underwent standard Lexiscan infusion protocol over 10 seconds followed by ra diolabeled tracer. The patient's test was stopped due to completion of protocol. Maximal achieved blood pressure during the test 142/74. Maximum heart rate during the test 70. ELECTROCARDIOGRAM FINDINGS: During stress testing patient's rhythm became paced; therefore, there were no significant changes. SYMPTOMS: The patient had no complaints of chest pain or shortness of breath during stress testing. IMPRESSION: 1. No Lexiscan-induced ST or T-wave changes from baseline abnormalities that are diagnostic of card iac ischemia. 2. No complaints of chest pain or shortness of breath during stress testing. 3. No documented premature ventricular contractions during stress testing. 4. Report of nuclear images to follow in separate dictation. Dictated By: GERDA ESPINOSA/VIANCA Conf#: [id number] DID#: [id number] CC: ARNOLD WOOD MD;*EndCC*
--- NOTE | 2016-12-03 18:43 | RADRPT ---
Vent Rate: 70 bpm RR Interval: 0 msec KS Interval: 346 msec QRS Duration: 196 msec QT Interval: 474 msec QTC Interval: 511 msec P-R-T Kosse: 47 - 108 - 9 degrees Ventricular paced rhythm Rightward axis Left bundle branch block Abnormal ECG Electronically Signed By: Da Paige [id number]
== END 2016-12-03 16:50 | disposition home or self-care (01) ==
LOC: E/R 19:53 → TEL 21:20
PROVIDERS: ADMIT Internal Medicine; ATTEND Internal Medicine
DX: R07.9 Chest pain, unspecified (principal); R94.31 Abnormal electrocardiogram [ECG] [EKG]; I12.9 Hypertensive chronic kidney disease with stage 1 through stage 4 chronic kidney disease, or unspecified chronic kidney disease; N18.9 Chronic kidney disease, unspecified; Z95.0 Presence of cardiac pacemaker; Z59.0 Homelessness; D64.9 Anemia, unspecified; Z72.0 Tobacco use
CPT/HCPCS: 36415; 71010; 78452; 80048; 80061; 82550; 82553; 83036; 83735; 84100; 84443; 84484; 85025; 85610; 85730; 93005; 93017; 93306; 96374; 96375; 99285; A9500; A9505; G0378; J2270; J2405; J2785

== ENCOUNTER 2016-12-19 02:32 | Emergency (ER) | payer MEDICARE, OTHER ==
[~2016-12-19] VITALS: Ht 180.3 cm; Wt 70.0 kg
[~2016-12-19 02:32] MED LIST: ALDS PO; AMIO200T2 PO; BENA10TA48 PO; CARV25TA79 PO; CARV3.1260 PO; PANT40TA4 PO; RIVA20TA PO
[2016-12-19 02:42] VITALS: Ht 180.3 cm; Wt 70.0 kg
--- NOTE | 2016-12-19 03:03 | RADRPT ---
PROCEDURE: XR Chest. CLINICAL INDICATION: Abdominal Pain TECHNIQUE: 2 frontal chest x-rays COMPARISON: 12/01/2016 FINDINGS: The lungs are clear. No focal opacification is seen. Portable AP technique accentuates the size of the cardiac silhouette. The heart does not appear to be grossly enlarged. There is appearance of s vashti chamber cardiac pacemaker and single chamber ICD leads with battery in the left chest wall aga in seen. Mild degenerative changes at shoulders. ECG leads projected over the chest IMPRESSION: 1. There is no acute cardiopulmonary process. RPTAT: HJES .Guy May MD, MD Date Time Electronically viewed and signed by .Guy May MD, MD on 12/19/2016 03:03 .S/
[2016-12-19 03:42] LABS: BASOPHILS % 0.8 % (0.0-2.0); EOSINOPHILS # 0.2 10^3/ul (0.0-0.5); HEMATOCRIT 38.1 % (42.0-52.0); LYMPHOCYTES # 1.9 10^3/ul (0.8-2.9); LYMPHOCYTES % 33.2 % (15.0-51.0); MEAN CORPUSCULAR HEMOGLOBIN 32.1 pg (29.0-33.0); MEAN CORPUSCULAR VOLUME 94.3 fl (82.0-101.0); MEAN PLATELET VOLUME 7.4 fl (7.4-10.4); MONOCYTE # 0.6 10^3/ul (0.3-0.9); MONOCYTES % 10.4 % (0.0-11.0); NEUTROPHIL # 2.9 10^3/ul (1.6-7.5); NEUTROPHILS % 52.6 % (39.0-77.0); PLATELET COUNT 297 10^3/UL (140-440); RED BLOOD COUNT 4.04 10^6/ul (4.70-6.10); UNCORRECTED WBC 5.6 10^3/ul (4.8-10.8); WHITE BLOOD COUNT 5.6 10^3/ul (4.8-10.8)
[2016-12-19 03:48] LABS: CONDITION 1
[2016-12-19 03:50] LABS: ALBUMIN 4.1 g/dl (3.3-4.9)
[2016-12-19 03:51] LABS: POTASSIUM 3.7 mmol/L (3.5-5.1)
[2016-12-19 03:53] LABS: BILIRUBIN,INDIRECT 0.2 mg/dl (0-1.1); BILIRUBIN,TOTAL 0.2 mg/dl (0.2-1.3); CREATININE 1.64 mg/dl (0.61-1.24)
[2016-12-19 03:54] LABS: ALBUMIN/GLOBULIN RATIO 1.24; CALCIUM 9.2 mg/dl (8.4-10.2); TOTAL PROTEIN 7.4 g/dl (6.1-8.1)
[2016-12-19 04:05] LABS: TROPONIN-I 0.018 ng/ml (0.00-0.12)
--- NOTE | 2016-12-19 04:29 | ERD ---
ER Documentation Chief Complaint Date/Time DATE: 12/19/16 TIME: 04:24 Chief Complaint chest pain x 1 day HPI 65-year-old man with a history of coronary artery disease presents with sharp nonexertional nonradiating chest pain waking him up this morning. 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 Recent workups including nuclear cardiac stress testing was recently negative. Patient denies dizziness or loss of consciousness, no diaphoresis, no cough, no calf or leg swelling, no vomiting or diarrhea. ROS All systems reviewed and are negative except as per history of present illness. Medications Home Meds Active Scripts Carvedilol* (Carvedilol*) 3.125 Mg Tablet, 3.125 MG PO BID for 60 Days, TAB Prov:HA AWAN MD 12/03/16 Pantoprazole* (Pantoprazole*) 40 Mg Tablet.dr, 40 MG PO DAILY@06 for 30 Days Prov:HA AWAN MD 12/03/16 Reported Medications Rivaroxaban* (Xarelto*) 20 Mg Tablet, 20 MG PO WITH DINNER, TAB 12/01/16 Carvedilol* (Carvedilol*) 25 Mg Tablet, 25 MG PO BID, #60 TAB 12/01/16 Benazepril Hcl* (Benazepril Hcl*) 10 Mg Tablet, 10 MG PO BID, #60 TAB 12/01/16 Spironolactone* (Aldactone*) 5 Mg/Ml (COMPOUNDED) Susp, 2.5 MG PO DAILY for 30 Days, BOTTLE (COMPOUNDED) 12/01/16 Amiodarone Hcl* (Amiodarone Hcl*) 200 Mg Tablet, 200 MG PO DAILY, #30 TAB 12/01/16 Allergies Allergies: Coded Allergies: No Known Drug Allergy (Verified Allergy, Mild, 12/01/16) PMhx/Soc Congestive heart failure with a left ventricular ejection fraction of 35%, abnormal EKG with biphasic T waves in leads V2 to V3 and a left bundle branch block, paroxysmal atrial fibrillation, hepatitis C, AICD placement, recurrent chest pain, hypertension, chronic kidney disease, recent cardiac nuclear stress testing which was negative History of Surgery: Yes (Heart surg age 5, 2x AICD placment, Epigastric hernia repair.) Anesthesia Reaction: No Hx Neurological Disorder: No Hx Respiratory Disorders: No Hx Cardiac Disorders: Yes (HTN, Pacemaker/ defibrillator.) Hx Psychiatric Problems: No Hx Miscellaneous Medical Probl: No Hx Alcohol Use: Yes (3-4 beers/ week.) 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.) Hx Tobacco Use: Yes (Cigarettes 1/2 pack a day.) Smoking Status: Former smoker FmHx Family History: No diabetes Physical Exam Vitals Vital Signs Date Time Temp Pulse Resp B/P Pulse Ox O2 Delivery O2 Flow Rate FiO2 12/19/16 05:05 70 17 145/82 99 Room Air 12/19/16 04:44 97.4 71 16 133/77 99 Room Air 12/19/16 02:42 97.2 76 15 142/82 99 Physical Exam GENERAL: Well-developed, well-nourished, well-hydrated, in no apparent distress , looks nontoxic in appearance HEENT: Moist mucous membranes, pink conjunctiva, no cervical spine tenderness or step-off deformities, no goiter, no jaundice or icterus, extraocular movements intact without pain. No submandibular induration, and no pharyngeal erythema NEURO: Alert and oriented 3, cranial nerves II through XII intact bilaterally, pupils equal round reactive to light, no focal deficits or facial asymmetry, sensation intact distally Strength 5/5 in upper and lower extremities bilaterally CARDIAC: Regular rate and rhythm, no murmurs rubs or gallops LUNGS: Clear bilaterally no wheezing crackles or stridor ABDOMEN: Soft nontender, no guarding, no rigidity, no rebound, no psoas sign no obturator sign. Normoactive bowel sounds SKIN: Warm and dry to touch, no abrasions, contusions, or hematomas, no lacerations, no ecchymosis, no target lesions, and without ulcers EXTREMITIES: No clubbing cyanosis or edema, calves are bilaterally symmetrical, no Homans sign, no popliteal cord sign. Distal pulses equal and bilateral PSYCH: Normal affect without agitation or irritability Result Diagram: 12/19/16 0305 12/19/16 030 Results 24 hrs Laboratory Tests Test 12/19/16 03:05 Alanine Aminotransferase (ALT/SGPT) 33IU/L Albumin 4.1g/dl Albumin/Globulin Ratio 1.24 Alkaline Phosphatase 88IU/L Anion Gap 18 Aspartate Amino Transf (AST/SGOT) 34IU/L Basophils # 0.010^3/ul Basophils % 0.8% Blood Urea Nitrogen 25mg/dl Calcium Level 9.2mg/dl Carbon Dioxide Level 29mmol/L Chloride Level 109mmol/L Creatinine 1.64mg/dl Direct Bilirubin 0.00mg/dl Eosinophils # 0.210^3/ul Eosinophils % 3.0% Globulin 3.30g/dl Glucose Level 102mg/dl Hematocrit 38.1% Hemoglobin 13.0g/dl Indirect Bilirubin 0.2mg/dl Lipase 121U/L Lymphocytes # 1.910^3/ul Lymphocytes % 33.2% Mean Corpuscular Hemoglobin 32.1pg Mean Corpuscular Hemoglobin Concent 34.0g/dl Mean Corpuscular Volume 94.3fl Mean Platelet Volume 7.4fl Monocytes # 0.610^3/ul Monocytes % 10.4% Neutrophils # 2.910^3/ul Neutrophils % 52.6% Nucleated Red Blood Cells # 0.010^3/ul Nucleated Red Blood Cells % 0.0/100WBC Platelet Count 84298^3/UL Potassium Level 3.7mmol/L Red Blood Count 4.0410^6/ul Red Cell Distribution Width 14.0% Sodium Level 152mmol/L Total Bilirubin 0.2mg/dl Total Protein 7.4g/dl Troponin I 0.018ng/ml White Blood Count 5.610^3/ul Procedures/MDM IV line was established patient was placed on no experience rhythm strip revealed a wide-complex rhythm at about 70 bpm. Patient was afebrile. EKG performed, read by me revealed a paced rhythm at 70 bpm, left axis deviation with a left bundle branch block, QRS duration 176 ms, no concerning ST elevations or depressions noted. One view chest x-ray performed, read by me he has no acute infiltrates, no pneumothorax, no end of the diaphragm. AICD placed in the left chest. CBC was unremarkable, electrolytes revealed dehydration and kidney injury consistent with his history and a BUN/creatinine of 25/1.6, liver function tests were normal, troponin was negative. I reviewed the patient's recent and remote past medical history, consultation reports, and recent imaging studies. Differential diagnoses considered, included but not limited to acute coronary syndrome, pulmonary embolism, aortic dissection, abdominal aortic aneurysm, sepsis, stroke, meningitis, encephalitis, pneumonia, appendicitis, cholecystitis , bowel obstruction, pyelonephritis, nephrolithiasis, cystitis, as well as metabolic, hematologic, and electrolyte abnormalities. As well as abscess, cellulitis, fractures, and dislocations. Patient feels much better at this time, and vital signs are normal, symptoms have improved. I did give strict instructions to return to the ED if symptoms continue or worsen, patient will otherwise follow-up with primary care physician. Patient understood instructions and agreed to plan. Departure Diagnosis: Primary Impression: Chest pain Chest pain type: unspecified Qualified Code: R07.9 - Chest pain, unspecified type Condition: THOMAS Frederick MD Dec 19, 2016 04:29
[2016-12-19 04:44] VITALS: TEMP 97.4
[2016-12-19 05:05] VITALS: BP 145/82; PULSE 70; RESP 17
[2016-12-20] MEDS ORDERED: NITROGLYCERIN (SL) 0.4 MG TAB ONE (13:51)
== END 2016-12-19 04:44 | disposition home or self-care (01) ==
LOC: E/R 02:32
DX: R07.9 Chest pain, unspecified (principal); I25.10 Atherosclerotic heart disease of native coronary artery without angina pectoris; I50.1 Left ventricular failure, unspecified; I12.0 Hypertensive chronic kidney disease with stage 5 chronic kidney disease or end stage renal disease; N18.5 Chronic kidney disease, stage 5; Z87.891 Personal history of nicotine dependence; Z95.0 Presence of cardiac pacemaker
CPT/HCPCS: 36415; 71010; 80053; 83690; 84484; 85025; 93005

== ENCOUNTER 2017-08-30 00:10 | Emergency (ER) | payer MEDICARE, OTHER ==
[~2017-08-30] VITALS: Ht 170.2 cm; Wt 66.3 kg
[2017-08-30 00:26] VITALS: Ht 170.2 cm; Wt 66.3 kg
[2017-08-30 03:34] LABS: BASOPHILS % 0.6 % (0.0-2.0); EOSINOPHILS # 0.1 10^3/ul (0.0-0.5); EOSINOPHILS % 1.4 % (0.0-7.0); HEMATOCRIT 38.7 % (42.0-52.0); HEMOGLOBIN 12.9 g/dl (14.0-18.0); LYMPHOCYTES % 28.3 % (15.0-51.0); MEAN CORPUSCULAR HEMOGLOBIN 32.4 pg (29.0-33.0); MEAN CORPUSCULAR HGB CONC 33.3 g/dl (32.0-37.0); MEAN CORPUSCULAR VOLUME 97.2 fl (82.0-101.0); MEAN PLATELET VOLUME 9.5 fl (7.4-10.4); MONOCYTE # 0.6 10^3/ul (0.3-0.9); NEUTROPHIL # 4.2 10^3/ul (1.6-7.5); NEUTROPHILS % 60.4 % (39.0-77.0); PLATELET COUNT 257 10^3/UL (140-415); RED BLOOD COUNT 3.98 10^6/ul (4.70-6.10); RED CELL DISTRIBUTION WIDTH 12.6 % (11.5-14.5)
--- NOTE | 2017-08-30 04:05 | RADRPT ---
PROCEDURE: XR Chest. CLINICAL INDICATION: Chest pain. TECHNIQUE: AP Portable chest. COMPARISON: 12/19/2016 FINDINGS: There is moderate cardiomegaly. A left chest cardiac device and leads are unchanged. The lungs are clear. The osseous structures are unremarkable. IMPRESSION: No acute findings. RPTAT: HIKT .Lane Seals MD, MD Date Time Electronically viewed and signed by .Lane Seals MD, MD on 08/30/2017 04:05 .T/
[2017-08-30 04:06] LABS: ALANINE AMINOTRANSFERASE 41 IU/L (13-69); ALBUMIN 4.4 g/dl (3.3-4.9); ALBUMIN/GLOBULIN RATIO 1.07; ALKALINE PHOSPHATASE 126 IU/L (42-121); ANION GAP 15 (8-16); ASPARTATE AMINO TRANSFERASE 37 IU/L (15-46); BILIRUBIN,INDIRECT 0.2 mg/dl (0-1.1); BILIRUBIN,TOTAL 0.2 mg/dl (0.2-1.3); BLOOD UREA NITROGEN 27 mg/dl (7-20); CALCIUM 9.7 mg/dl (8.4-10.2); CARBON DIOXIDE 27 mmol/L (21-31); CHLORIDE 106 mmol/L (97-110); CREATININE 1.68 mg/dl (0.61-1.24); GLUCOSE 109 mg/dl (70-220); POTASSIUM 4.5 mmol/L (3.5-5.1); SODIUM 143 mmol/L (135-144); TOTAL PROTEIN 8.5 g/dl (6.1-8.1)
[2017-08-30 04:18] LABS: B-TYPE NATRIURETIC PEPTIDE 2870 PG/ML (0-125)
[2017-08-30 04:34] LABS: TROPONIN-I < 0.012 ng/ml (0.00-0.12)
[2017-08-30 05:30] VITALS: BP 155/96; PULSE 89; RESP 13
--- NOTE | 2017-08-30 05:38 | ERD ---
ER Documentation Chief Complaint Chief Complaint CP "pressure like" x4days. +SOB, -n/v. +pacemaker HPI This is a 6-year-old male comes in with chest pain for 4 days. Denies nausea vomiting. Denies any shortness of breath. Denies any other current complaints for chest pain is mild to moderate intensity. Tylenol 4 days. Patient has history of high blood pressure and high cholesterol ROS All systems reviewed and are negative except as per history of present illness. Medications Home Meds Active Scripts Carvedilol* (Carvedilol*) 3.125 Mg Tablet, 3.125 MG PO BID for 60 Days, TAB Prov:HA AWAN MD 12/03/16 Pantoprazole* (Pantoprazole*) 40 Mg Tablet.dr, 40 MG PO DAILY@06 for 30 Days Prov:HA AWAN MD 12/03/16 Reported Medications Rivaroxaban* (Xarelto*) 20 Mg Tablet, 20 MG PO WITH DINNER, TAB 12/01/16 Carvedilol* (Carvedilol*) 25 Mg Tablet, 25 MG PO BID, #60 TAB 12/01/16 Benazepril Hcl* (Benazepril Hcl*) 10 Mg Tablet, 10 MG PO BID, #60 TAB 12/01/16 Spironolactone* (Aldactone*) 5 Mg/Ml (COMPOUNDED) Susp, 2.5 MG PO DAILY for 30 Days, BOTTLE (COMPOUNDED) 12/01/16 Amiodarone Hcl* (Amiodarone Hcl*) 200 Mg Tablet, 200 MG PO DAILY, #30 TAB 12/01/16 Allergies Allergies: Coded Allergies: No Known Drug Allergy (Verified Allergy, Mild, 12/01/16) PMhx/Soc History of Surgery: Yes (Heart surg age 5, 2x AICD placment, Epigastric hernia repair.) Anesthesia Reaction: No Hx Neurological Disorder: No Hx Respiratory Disorders: No Hx Cardiac Disorders: Yes (HTN, Pacemaker/ defibrillator.) Hx Psychiatric Problems: No Hx Miscellaneous Medical Probl: No Hx Alcohol Use: Yes (3-4 beers/ week.) Hx Substance Use: No (Heroin 18 years ago.) Hx Tobacco Use: Yes (Cigarettes 1/2 pack a day.) Smoking Status: Current every day smoker Physical Exam Vitals Vital Signs Date Time Temp Pulse Resp B/P Pulse Ox O2 Delivery O2 Flow Rate FiO2 08/30/17 00:26 97.6 63 18 149/95 100 Physical Exam Const: [] Head: Atraumatic Eyes: Normal Conjunctiva ENT: Normal External Ears, Nose and Mouth. Neck: Full range of motion..~ No meningismus. Resp: Clear to auscultation bilaterally Cardio: Regular rate and rhythm, no murmurs Abd: Soft, non tender, non distended. Normal bowel sounds Skin: No petechiae or rashes Back: No midline or flank tenderness Ext: No cyanosis, or edema Neur: Awake and alert Psych: Normal Mood and Affect Result Diagram: 08/30/1730908/30/17309 Results 24 hrs Laboratory Tests Test 08/30/17 03:10 White Blood Count 7.010^3/ul Red Blood Count 3.9810^6/ul Hemoglobin 12.9g/dl Hematocrit 38.7% Mean Corpuscular Volume 97.2fl Mean Corpuscular Hemoglobin 32.4pg Mean Corpuscular Hemoglobin Concent 33.3g/dl Red Cell Distribution Width 12.6% Platelet Count 48720^3/UL Mean Platelet Volume 9.5fl Neutrophils % 60.4% Lymphocytes % 28.3% Monocytes % 9.0% Eosinophils % 1.4% Basophils % 0.6% Nucleated Red Blood Cells % 0.0/100WBC Neutrophils # 4.210^3/ul Lymphocytes # 2.010^3/ul Monocytes # 0.610^3/ul Eosinophils # 0.110^3/ul Basophils # 0.010^3/ul Nucleated Red Blood Cells # 0.010^3/ul Sodium Level 143mmol/L Potassium Level 4.5mmol/L Chloride Level 106mmol/L Carbon Dioxide Level 27mmol/L Anion Gap 15 Blood Urea Nitrogen 27mg/dl Creatinine 1.68mg/dl Glucose Level 109mg/dl Calcium Level 9.7mg/dl Total Bilirubin 0.2mg/dl Direct Bilirubin 0.00mg/dl Indirect Bilirubin 0.2mg/dl Aspartate Amino Transf (AST/SGOT) 37IU/L Alanine Aminotransferase (ALT/SGPT) 41IU/L Alkaline Phosphatase 126IU/L Troponin I < 0.012ng/ml B-Type Natriuretic Peptide 2870PG/ML Total Protein 8.5g/dl Albumin 4.4g/dl Globulin 4.10g/dl Albumin/Globulin Ratio 1.07 Procedures/MDM EKG: Rate/Rhythm: [Normal Sinus Rhythm] QRS, ST, T-waves: [No changes consistent w/ acute ischemia] Impression: [No evidence of ischemia or arrhythmia] Chest X-ray 1V Interpreted by me: Soft Tissue: No acute abnormalities Bones: No acute abnormalities Mediastinum/Cardiac Silhouette/Lungs: [No acute abnormalities] Patient's thoracic symptoms have stabilized while in the department and are stable for outpatient follow up. Exam and work up not consistent w/ ischemia, arrhythmia, PE or dissection. Departure Diagnosis: Primary Impression: Chest pain Chest pain type: unspecified Qualified Code: R07.9 - Chest pain, unspecified type Condition: Stable ARNOLD BADILLO Aug 30, 2017 05:37
[2017-08-30] MEDS ORDERED: KETOROLAC 30 MG INJ IV STA (05:44)
== END 2017-08-30 06:19 | disposition home or self-care (01) ==
LOC: E/R 00:10
DX: R07.9 Chest pain, unspecified (principal); I10 Essential (primary) hypertension; F17.210 Nicotine dependence, cigarettes, uncomplicated; R06.02 Shortness of breath; Z95.0 Presence of cardiac pacemaker
CPT/HCPCS: 36415; 71010; 80053; 83880; 84484; 85025; 93005; 96374; 99285; J1885

== ENCOUNTER 2017-09-29 20:11 | Emergency (ER) | payer MEDICARE, OTHER ==
[~2017-09-29] VITALS: Ht 177.8 cm; Wt 86.6 kg
[2017-09-29 20:13] VITALS: Ht 177.8 cm; Wt 86.6 kg
[2017-09-29] MEDS ORDERED: METO-407 PO (21:22)
--- NOTE | 2017-09-29 21:40 | RADRPT ---
PROCEDURE: XR Elbow. CLINICAL INDICATION: Left elbow pain TECHNIQUE: Three views of the left elbow are available for review COMPARISON: None available FINDINGS: The osseous structures, articular spaces, and surrounding soft tissues of the left elbow are intact. No acute fracture or dislocation is seen. No radiopaque foreign body is identified. No fat pad sa il sign is identified to indicate a hemarthrosis. Anterior dorsal soft tissue swelling along the ole cranon bursa is noted. IMPRESSION: 1. Posterior dorsal soft tissue swelling. Bursitis is not excluded. 2. No underlying bony fracture or dislocation is identified. RPTAT: HMJB .Mikey Ni MD, MD Date Time Electronically viewed and signed by .Mikey Ni MD, MD on 09/29/2017 21:39 .B/
--- NOTE | 2017-09-29 21:47 | RADRPT ---
PROCEDURE: XR Knee. CLINICAL INDICATION: Left knee pain. TECHNIQUE: 4 views of the left knee. COMPARISON: None available FINDINGS: There is no acute fracture or dislocation. There is minimal medial compartment and patellar osteoph ytosis. No joint effusion is identified. IMPRESSION: 1. No acute fracture or dislocation of the left knee. RPTAT: HTAR .Luis A Cage MD, MD Date Time Electronically viewed and signed by .Luis A Cage MD, MD on 09/29/2017 21:47 .R/
--- NOTE | 2017-09-29 22:58 | RADRPT ---
PROCEDURE: CT BRAIN WITHOUT CONTRAST CLINICAL INDICATION: 66-year-old male with trauma. TECHNIQUE: The study was performed utilizing [employer] VCT 64-slice CT scanner. Direct axial sections were obtained from the foramen magnum to the vertex without the use of intravenous contrast material. Sagittal and coronal reformations were obtained. One or more the following dose reduction techniques were utilized: automated exposure control, adjustment of the mA and/or kV according to p atient's size and/or use of iterative reconstruction technique. DICOM images are available. The imag es were viewed on a PACS workstation. CTD/vol = 45.0 mGy; Total Exam DLP = 810.3 mGy-cm. COMPARISON: None. FINDINGS: There is an old lacunar infarct within the left putamen. There is mild asymmetry of the lateral vent ricles with the left side being greater than the right. There is fabl-kr-ovbwrnma degree of diffuse cortical and central atrophy with compensatory ventricular enlargement. There is no evidence for ma ss effect or midline shift. There are periventricular and deep white matter areas of decreased dens ity consistent with microangiopathic ischemic changes. There is no evidence for acute intra or extr a-axial blood. Calcifications are seen within the intracranial carotid arteries bilaterally. The bon y calvarium is intact. There is right paranasal soft tissue swelling. There is a right nasal bone fr acture. There is minimal mucosal thickening within the ethmoid air cells bilaterally. No air-fluid l evels are noted. The mastoid air cells are without significant soft tissue. IMPRESSION: 1. Rmff-ib-gzscsxun diffuse atrophy. 2. Microangiopathic ischemic changes. 3. Old left basal ganglia lacunar infarct. 4. Vascular calcifications. 5. Acute right nasal bone fracture. 4. Minimal mucosal thickening ethmoid air cells. .Edy Delgado MD, Date Time Electronically viewed and signed by .Edy Delgado MD, MD on 09/29/2017 22:58 .Karla
[2017-09-29] MEDS ORDERED: CEPH-443 PO (23:53)
[2017-09-29] MEDS ORDERED: HYDR-906 PO (23:53)
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
[2017-09-30 01:05] VITALS: BP 140/77; PULSE 77; RESP 19; TEMP 98.6
== END 2017-09-30 01:05 | disposition home or self-care (01) ==
LOC: E/R 20:11
DX: S02.2XXA Fracture of nasal bones, initial encounter for closed fracture (principal); S83.92XA Sprain of unspecified site of left knee, initial encounter; S50.02XA Contusion of left elbow, initial encounter; S09.90XA Unspecified injury of head, initial encounter; I10 Essential (primary) hypertension; F17.210 Nicotine dependence, cigarettes, uncomplicated; V01.10XA Pedestrian on foot injured in collision with pedal cycle in traffic accident, initial encounter; Z95.0 Presence of cardiac pacemaker
CPT/HCPCS: 70450; 73562

== ENCOUNTER 2017-10-14 20:26 | Emergency (ER) | payer MEDICARE, OTHER ==
[~2017-10-14] VITALS: Ht 172.7 cm; Wt 71.0 kg
[~2017-10-14 20:26] MED LIST changes: -CARV25TA79 PO; -CARV3.1260 PO; +CEPH-443 PO; +HYDR-906 PO; +METO-407 PO; -PANT40TA4 PO; -RIVA20TA PO; +RIVA20TA5 PO
[2017-10-14 20:49] VITALS: Ht 172.7 cm; Wt 71.0 kg
[2017-10-15] MEDS ORDERED: ASPIRIN 325 MG TAB PO STA (00:22)
--- NOTE | 2017-10-15 00:45 | RADRPT ---
PROCEDURE: XR Chest. CLINICAL INDICATION: Chest Pain. TECHNIQUE: Single frontal view of the chest was obtained. COMPARISON: 12/19/2016 FINDINGS: The cardiomediastinal silhouette is mildly enlarged. There is mild aortic calcification. There is a left chest pacemaker AICD.. Pulmonary vasculature is within normal limits. The lungs are clear. No signs of pleural fluid or pneumothorax are seen. The osseous structures and soft tissues are unre markable. IMPRESSION: No evidence for active cardiopulmonary disease. Mild cardiomegaly. Mild aortic calcification. Left c hest pacemaker AICD. RPTAT: HBST .Didier Hogue MD, MD Date Time Electronically viewed and signed by .Didier Hogue MD, MD on 10/15/2017 00:45 .T/
[2017-10-15 00:54] LABS: BASOPHILS % 0.7 % (0.0-2.0); EOSINOPHILS # 0.1 10^3/ul (0.0-0.5); EOSINOPHILS % 1.2 % (0.0-7.0); HEMATOCRIT 36.8 % (42.0-52.0); HEMOGLOBIN 12.3 g/dl (14.0-18.0); LYMPHOCYTES # 1.9 10^3/ul (0.8-2.9); LYMPHOCYTES % 33.2 % (15.0-51.0); MEAN CORPUSCULAR HEMOGLOBIN 31.9 pg (29.0-33.0); MEAN CORPUSCULAR HGB CONC 33.4 g/dl (32.0-37.0); MEAN CORPUSCULAR VOLUME 95.3 fl (82.0-101.0); MEAN PLATELET VOLUME 9.2 fl (7.4-10.4); MONOCYTE # 0.6 10^3/ul (0.3-0.9); MONOCYTES % 10.8 % (0.0-11.0); NEUTROPHILS % 53.9 % (39.0-77.0); PLATELET COUNT 249 10^3/UL (140-415); RED BLOOD COUNT 3.86 10^6/ul (4.70-6.10); RED CELL DISTRIBUTION WIDTH 12.6 % (11.5-14.5); WHITE BLOOD COUNT 5.6 10^3/ul (4.8-10.8)
[2017-10-15 01:19] LABS: CALCIUM 9.6 mg/dl (8.4-10.2); CREATININE 1.77 mg/dl (0.61-1.24)
[2017-10-15 01:32] LABS: TROPONIN-I 0.024 ng/ml (0.00-0.12)
--- NOTE | 2017-10-15 07:00 | ERD ---
ER Documentation Chief Complaint Chief Complaint bib self, cc: palpitations, +pacemaker, no chest pain, no sob, HPI 66-year-old male presents for intermittent palpitations earlier today. Denies having any palpitations currently. Denies chest pain shortness of breath, has had no fevers chills or cough. No nausea. Does have a history of pacemaker and coronary artery disease. ROS All systems reviewed and are negative except as per history of present illness. Medications Home Meds Active Scripts Hydrocodone/Acetaminophen ([place] 5-325 Tablet) 1 Each Tablet, 1 TAB PO Q6H Y for PAIN, #7 TAB Prov:MARGARETTEOSALEXSTOLOS A. DO 09/29/17 Cephalexin* (Keflex*) 500 Mg Capsule, 500 MG PO QID for 5 Days, CAP Prov:LEKKOS,APOSTOLOS A. DO 09/29/17 Reported Medications Metoprolol Tartrate* (Lopressor*) 100 Mg Tablet, 100 MG PO BID, #60 TAB 09/29/17 Rivaroxaban* (Xarelto*) 20 Mg Tablet, 20 MG PO WITH DINNER, TAB 12/01/16 Benazepril Hcl* (Benazepril Hcl*) 10 Mg Tablet, 10 MG PO BID, #60 TAB 12/01/16 Spironolactone* (Aldactone*) 5 Mg/Ml (COMPOUNDED) Susp, 2.5 MG PO DAILY for 30 Days, BOTTLE (COMPOUNDED) 12/01/16 Amiodarone Hcl* (Amiodarone Hcl*) 200 Mg Tablet, 200 MG PO DAILY, #30 TAB 12/01/16 Allergies Allergies: Coded Allergies: No Known Drug Allergy (Verified Allergy, Mild, 09/29/17) PMhx/Soc History of Surgery: Yes (Heart surg age 5, 2x AICD placment, Epigastric hernia repair. 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 Neck: Full range of motion..~ No meningismus. Resp: Mildly decreased bibasilar breath sounds. Cardio: Regular rate and rhythm, no murmurs Abd: Soft, non tender, non distended. Normal bowel sounds Skin: No petechiae or rashes Ext: No cyanosis, or edema Neur: Awake and alert and oriented 3, no focal deficits. Psych: Normal Mood and Affect Result Diagram: 10/15/170 10/15/17 0040 Results 24 hrs Laboratory Tests Test 10/15/17 00:40 White Blood Count 5.610^3/ul Red Blood Count 3.8610^6/ul Hemoglobin 12.3g/dl Hematocrit 36.8% Mean Corpuscular Volume 95.3fl Mean Corpuscular Hemoglobin 31.9pg Mean Corpuscular Hemoglobin Concent 33.4g/dl Red Cell Distribution Width 12.6% Platelet Count 80699^3/UL Mean Platelet Volume 9.2fl Neutrophils % 53.9% Lymphocytes % 33.2% Monocytes % 10.8% Eosinophils % 1.2% Basophils % 0.7% Nucleated Red Blood Cells % 0.0/100WBC Neutrophils # 3.010^3/ul Lymphocytes # 1.910^3/ul Monocytes # 0.610^3/ul Eosinophils # 0.110^3/ul Basophils # 0.010^3/ul Nucleated Red Blood Cells # 0.010^3/ul Sodium Level 142mmol/L Potassium Level 4.0mmol/L Chloride Level 106mmol/L Carbon Dioxide Level 26mmol/L Anion Gap 14 Blood Urea Nitrogen 35mg/dl Creatinine 1.77mg/dl Glucose Level 91mg/dl Calcium Level 9.6mg/dl Troponin I 0.024ng/ml B-Type Natriuretic Peptide 3840PG/ML Current Medications Medications (Trade) Dose Ordered Sig/Bandar Route PRN Reason Start Time Stop Time Status Last Admin Dose Admin Aspirin (Aspirin) 325 mg ONCE STAT PO 10/15/17 00:22 10/15/17 00:24 DC 10/15/17 00:49 Procedures/MDM Young elderly male with palpitations and chronic congestive heart failure. Patient is asymptomatic throughout his stay in the emergency room. He was given 325 mg aspirin. His BNP is slightly more elevated than his previous visit. Troponin is negative. Patient remains stable on the monitor throughout his stay. As he is asymptomatic is currently no reason for admission. Omitted creatinine is at the patient's baseline to my review of the EMR. He does have water pills that he takes at home. I am instructing him to see his primary care doctor on Tuesday. He is going to call first thing on Tuesday morning for an appointment. Told return to emergency room for any chest pain shortness of breath or any concerning symptoms. EKG interpretation: Left bundle branch block rate of 70, right axis deviation, QTC of 527. Abnormal EKG nurse monitoring interpretation: Normal sinus rhythm without arrhythmia Chest x-ray interpretation: I see no acute process. See no pulmonary edema, no infiltrates, pneumothorax, no fractures Departure Diagnosis: Primary Impression: Palpitations Additional Impression: CHF (congestive heart failure) Condition: Stable Patient Instructions: Palpitations Additional Instructions: Call your primary care doctor TOMORROW for an appointment during the next 2-3 days. Obtain a referral for and ECHOCARDIOGRAM. See the doctor sooner or return here if your condition worsens before your appointment time. DEION NAJERA DO Oct 15, 2017 07:00
[2017-10-15 07:35] VITALS: BP 133/91; PULSE 63; RESP 16; TEMP 98.4
== END 2017-10-15 07:35 | disposition home or self-care (01) ==
LOC: E/R 20:26
DX: I50.9 Heart failure, unspecified (principal); I10 Essential (primary) hypertension; F17.210 Nicotine dependence, cigarettes, uncomplicated; I25.10 Atherosclerotic heart disease of native coronary artery without angina pectoris; Z95.810 Presence of automatic (implantable) cardiac defibrillator
CPT/HCPCS: 36415; 71010; 80048; 83880; 84484; 85025; 93005

== ENCOUNTER 2017-10-16 17:00 | Emergency (ER) | payer MEDICARE, OTHER ==
[~2017-10-16] VITALS: Ht 177.8 cm; Wt 65.2 kg
[2017-10-16 17:09] VITALS: Ht 177.8 cm; Wt 65.2 kg
[2017-10-16] MEDS ORDERED: HALOPERIDOL 5 MG INJ IM STA (17:34)
[2017-10-16 18:47] LABS: BASOPHILS % 0.8 % (0.0-2.0); EOSINOPHILS # 0.1 10^3/ul (0.0-0.5); EOSINOPHILS % 1.2 % (0.0-7.0); HEMATOCRIT 40.7 % (42.0-52.0); HEMOGLOBIN 13.5 g/dl (14.0-18.0); LYMPHOCYTES # 1.3 10^3/ul (0.8-2.9); LYMPHOCYTES % 25.4 % (15.0-51.0); MEAN CORPUSCULAR HEMOGLOBIN 32.1 pg (29.0-33.0); MEAN CORPUSCULAR HGB CONC 33.2 g/dl (32.0-37.0); MEAN CORPUSCULAR VOLUME 96.7 fl (82.0-101.0); MEAN PLATELET VOLUME 9.1 fl (7.4-10.4); MONOCYTE # 0.5 10^3/ul (0.3-0.9); MONOCYTES % 9.3 % (0.0-11.0); NEUTROPHIL # 3.1 10^3/ul (1.6-7.5); NEUTROPHILS % 63.1 % (39.0-77.0); PLATELET COUNT 267 10^3/UL (140-415); RED BLOOD COUNT 4.21 10^6/ul (4.70-6.10); RED CELL DISTRIBUTION WIDTH 12.4 % (11.5-14.5); WHITE BLOOD COUNT 4.9 10^3/ul (4.8-10.8)
[2017-10-16 19:13] LABS: ALANINE AMINOTRANSFERASE 53 IU/L (13-69); ALBUMIN 4.1 g/dl (3.3-4.9); ALBUMIN/GLOBULIN RATIO 1.24; ALKALINE PHOSPHATASE 111 IU/L (42-121); ANION GAP 15 (8-16); ASPARTATE AMINO TRANSFERASE 41 IU/L (15-46); BILIRUBIN,INDIRECT 0.1 mg/dl (0-1.1); BILIRUBIN,TOTAL 0.1 mg/dl (0.2-1.3); BLOOD UREA NITROGEN 31 mg/dl (7-20); CALCIUM 9.5 mg/dl (8.4-10.2); CARBON DIOXIDE 27 mmol/L (21-31); CHLORIDE 108 mmol/L (97-110); CREATININE 1.61 mg/dl (0.61-1.24); GLUCOSE 81 mg/dl (70-220); POTASSIUM 4.1 mmol/L (3.5-5.1); SODIUM 146 mmol/L (135-144); TOTAL PROTEIN 7.4 g/dl (6.1-8.1)
[2017-10-16 19:16] LABS: ACETAMINOPHEN < 10.0 ug/ml (10.0-30.0); ETHANOL < 10.0 mg/dl; SALICYLATE < 1.0 mg/dl (5.0-30.0)
[2017-10-16 19:49] VITALS: TEMP 98.1
[2017-10-16 23:00] LABS: ADD UMIC NO; UR ASCORBIC ACID NEGATIVE (NEGATIVE); UR BILIRUBIN (Dip) NEGATIVE (NEGATIVE); UR BLOOD (Dip) NEGATIVE (NEGATIVE); UR CLARITY CLEAR (CLEAR); UR COLOR YELLOW (YELLOW); UR GLUCOSE (Dip) NEGATIVE (NEGATIVE); UR KETONES (Dip) NEGATIVE (NEGATIVE); UR LEUKOCYTE ESTERASE (Dip) NEGATIVE Leu/ul (NEGATIVE); UR NITRITE (Dip) NEGATIVE (NEGATIVE); UR SPECIFIC GRAVITY (Dip) 1.024 (1.003-1.030); UR TOTAL PROTEIN (Dip) NEGATIVE (NEGATIVE); UR UROBILINOGEN (Dip) 1+ mg/dL (NEGATIVE)
[2017-10-16 23:19] LABS: BARBITURATES Negative (NEGATIVE); BENZODIAZEPINES Negative (NEGATIVE); CANNABINOIDS Negative (NEGATIVE); COCAINE Negative (NEGATIVE); OPIATES Negative (NEGATIVE)
--- NOTE | 2017-10-16 23:44 | PSY ---
Date/Time of Note Date/Time of Note DATE: 10/16/17 TIME: 23:24 Psychiatric Subjective Eval Consent Pt consented to telemedicine: Yes Subjective Evaluation Patient location: emergency Chief Complaint: "people are after me" denies si but states he "wants to hurt someone" Reason for consult: paranoid History of present illness patient is a 66 yo male homeless with PPH of depression , however he states that he has never been treated, who came to the ER due to "feeling hostile ", he states that for about one month he has been feeling depressed and anxious and has been feeling that he wants to hurt people, however he says that he is feeling calmer now, denies any SI or HI, he has been feeling that people are after him but also states that he is not feeling this way anymore, he denies any hallucination , denies any past suicidal attempt.he has been feeling anxious leading to insomnia and loss of appetite, he is utox positive for methamphetamine. Past psychiatric history denies Hospitalization: no Family History denies Medical history Problems Medical Problems: (1) Chest pain Status: Acute (2) Chest pain Status: Acute (3) Chest pain Status: Acute (4) CHF (congestive heart failure) Status: Acute (5) Head injury Status: Acute (6) Hypertension Status: Acute (7) Left elbow contusion Status: Acute (8) Left knee sprain Status: Acute (9) Nasal fracture Status: Acute (10) Palpitations Status: Acute Allergies: Coded Allergies: No Known Drug Allergy (Verified Allergy, Mild, 09/29/17) Substance Abuse Substance abuse history: Yes (methamphetamine ) Prior substance abuse treatmen: No Social History Marital status: single Level of education: no DPA/Conservatorship: No Occupation/Senior Living: no Psychiatric Objective Eval Review of Systems: Review of Systems: Not Applicable Physical Examination: Physical Examination: Applicable Sleep: Insomnia Appetite: Decreased Energy: Decreased Interest: Decreased Mental Status Examination: Appearance: Disheveled Eye Contact: Fair Psychomotor Activity: Normal Behavior: Cooperative Speech: Clear AFFECT: Flat Mood: Irritable Though Process: Linear Thought Content: Delusions Suicidal: No Homicidal: No On 72 hour hold: No Orientation: x2 Cognition: Alert Insight: Intact Judgement: Intact Attention Span: Intact Laboratory Results Laboratory Tests Test 10/16/17 18:30 10/16/17 21:45 White Blood Count 4.910^3/ul Red Blood Count 4.2110^6/ul Hemoglobin 13.5g/dl Hematocrit 40.7% Mean Corpuscular Volume 96.7fl Mean Corpuscular Hemoglobin 32.1pg Mean Corpuscular Hemoglobin Concent 33.2g/dl Red Cell Distribution Width 12.4% Platelet Count 73767^3/UL Mean Platelet Volume 9.1fl Neutrophils % 63.1% Lymphocytes % 25.4% Monocytes % 9.3% Eosinophils % 1.2% Basophils % 0.8% Nucleated Red Blood Cells % 0.0/100WBC Neutrophils # 3.110^3/ul Lymphocytes # 1.310^3/ul Monocytes # 0.510^3/ul Eosinophils # 0.110^3/ul Basophils # 0.010^3/ul Nucleated Red Blood Cells # 0.010^3/ul Sodium Level 146mmol/L Potassium Level 4.1mmol/L Chloride Level 108mmol/L Carbon Dioxide Level 27mmol/L Anion Gap 15 Blood Urea Nitrogen 31mg/dl Creatinine 1.61mg/dl Glucose Level 81mg/dl Calcium Level 9.5mg/dl Total Bilirubin 0.1mg/dl Direct Bilirubin 0.00mg/dl Indirect Bilirubin 0.1mg/dl Aspartate Amino Transf (AST/SGOT) 41IU/L Alanine Aminotransferase (ALT/SGPT) 53IU/L Alkaline Phosphatase 111IU/L Total Protein 7.4g/dl Albumin 4.1g/dl Globulin 3.30g/dl Albumin/Globulin Ratio 1.24 Salicylates Level < 1.0mg/dl Acetaminophen Level < 10.0ug/ml Ethyl Alcohol Level < 10.0mg/dl Urine Color YELLOW Urine Clarity CLEAR Urine pH 5.0 Urine Specific [place] 1.024 Urine Ketones NEGATIVEmg/dL Urine Nitrite NEGATIVEmg/dL Urine Bilirubin NEGATIVEmg/dL Urine Urobilinogen 1+mg/dL Urine Leukocyte Esterase NEGATIVELeu/ul Urine Hemoglobin NEGATIVEmg/dL Urine Glucose NEGATIVEmg/dL Urine Total Protein NEGATIVEmg/dl Urine Opiates Screen Negative Urine Barbiturates Negative Urine Amphetamines Screen Positive Urine Benzodiazepines Screen Negative Urine Cocaine Screen Negative Urine Cannabinoids Negative Assessment and Plan Assessment/Diagnosis 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 Based on available evidence, ~this condition CAN be safely treated at a lower level of care effective today. Patient is stable without ~clear and convincing evidence of imminent danger due to mental illness that requires acute inpatient psychiatric ~care as the least restrictive alternative. Please discharge patient with referral for follow up to a outpatient mental health clinic for individual psychotherapy once a week for at least 45 mn for 6 months and medication management. ROSANGELA SAMSON MD Oct 16, 2017 23:34
[2017-10-17] MEDS ORDERED: RIS1 PO (00:36)
--- NOTE | 2017-10-17 00:41 | ERD ---
ER Documentation Chief Complaint Chief Complaint "people are after me" denies si but states he "wants to hurt someone" HPI This 66-year-old male was brought in because he was found saying that he wanted to hurt someone and stated he needed people are after him. He did not have auditory or visual hallucinations she has had a general feeling that people were pursuing him. Admits to smoking methamphetamines today. Denies any physical pain or distress. States that he has had a history of kidney problems. Eyes any chest pain, shortness of breath, fever or chills. Does not use IV drugs. ROS All systems reviewed and are negative except as per history of present illness. Medications Home Meds Active Scripts Risperidone* (Risperdal*) 1 Mg Tablet, 1 MG PO QHS, #14 TAB Prov:DEION NAJERA DO 10/17/17 Hydrocodone/Acetaminophen (Apex 5-325 Tablet) 1 Each Tablet, 1 TAB PO Q6H Y for PAIN, #7 TAB Prov:AURELIA MONROY DO 09/29/17 Cephalexin* (Keflex*) 500 Mg Capsule, 500 MG PO QID for 5 Days, CAP Prov:ALEX MONROYSTOLOS A. DO 09/29/17 Reported Medications Metoprolol Tartrate* (Lopressor*) 100 Mg Tablet, 100 MG PO BID, #60 TAB 09/29/17 Rivaroxaban* (Xarelto*) 20 Mg Tablet, 20 MG PO WITH DINNER, TAB 12/01/16 Benazepril Hcl* (Benazepril Hcl*) 10 Mg Tablet, 10 MG PO BID, #60 TAB 12/01/16 Spironolactone* (Aldactone*) 5 Mg/Ml (COMPOUNDED) Susp, 2.5 MG PO DAILY for 30 Days, BOTTLE (COMPOUNDED) 12/01/16 Amiodarone Hcl* (Amiodarone Hcl*) 200 Mg Tablet, 200 MG PO DAILY, #30 TAB 12/01/16 Allergies Allergies: Coded Allergies: No Known Drug Allergy (Verified Allergy, Mild, 09/29/17) PMhx/Soc History of Surgery: Yes (Heart surg age 5, 2x AICD placment, Epigastric hernia repair. 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 Neck: Full range of motion. Resp: Clear to auscultation bilaterally Cardio: Regular rate and rhythm, no murmurs Abd: Soft, non tender, non distended. Normal bowel sounds Skin: No petechiae or rashes Back: No midline or flank tenderness Ext: No cyanosis, or edema Neur: Awake and alert and oriented 3, no focal deficits Psych: Appears mildly anxious but is calm. Result Diagram: 10/16/17182910/16/171829 Results 24 hrs Laboratory Tests Test 10/16/17 18:30 10/16/17 21:45 White Blood Count 4.910^3/ul Red Blood Count 4.2110^6/ul Hemoglobin 13.5g/dl Hematocrit 40.7% Mean Corpuscular Volume 96.7fl Mean Corpuscular Hemoglobin 32.1pg Mean Corpuscular Hemoglobin Concent 33.2g/dl Red Cell Distribution Width 12.4% Platelet Count 10286^3/UL Mean Platelet Volume 9.1fl Neutrophils % 63.1% Lymphocytes % 25.4% Monocytes % 9.3% Eosinophils % 1.2% Basophils % 0.8% Nucleated Red Blood Cells % 0.0/100WBC Neutrophils # 3.110^3/ul Lymphocytes # 1.310^3/ul Monocytes # 0.510^3/ul Eosinophils # 0.110^3/ul Basophils # 0.010^3/ul Nucleated Red Blood Cells # 0.010^3/ul Sodium Level 146mmol/L Potassium Level 4.1mmol/L Chloride Level 108mmol/L Carbon Dioxide Level 27mmol/L Anion Gap 15 Blood Urea Nitrogen 31mg/dl Creatinine 1.61mg/dl Glucose Level 81mg/dl Calcium Level 9.5mg/dl Total Bilirubin 0.1mg/dl Direct Bilirubin 0.00mg/dl Indirect Bilirubin 0.1mg/dl Aspartate Amino Transf (AST/SGOT) 41IU/L Alanine Aminotransferase (ALT/SGPT) 53IU/L Alkaline Phosphatase 111IU/L Total Protein 7.4g/dl Albumin 4.1g/dl Globulin 3.30g/dl Albumin/Globulin Ratio 1.24 Salicylates Level < 1.0mg/dl Acetaminophen Level < 10.0ug/ml Ethyl Alcohol Level < 10.0mg/dl Urine Color YELLOW Urine Clarity CLEAR Urine pH 5.0 Urine Specific [place] 1.024 Urine Ketones NEGATIVEmg/dL Urine Nitrite NEGATIVEmg/dL Urine Bilirubin NEGATIVEmg/dL Urine Urobilinogen 1+mg/dL Urine Leukocyte Esterase NEGATIVELeu/ul Urine Hemoglobin NEGATIVEmg/dL Urine Glucose NEGATIVEmg/dL Urine Total Protein NEGATIVEmg/dl Urine Opiates Screen Negative Urine Barbiturates Negative Urine Amphetamines Screen Positive Urine Benzodiazepines Screen Negative Urine Cocaine Screen Negative Urine Cannabinoids Negative Current Medications Medications (Trade) Dose Ordered Sig/Bandar Route PRN Reason Start Time Stop Time Status Last Admin Dose Admin Haloperidol (Haldol) 5 mg ONCE STAT IM 10/16/17 17:34 10/16/17 17:36 DC 10/16/17 17:52 Procedures/MDM Acute psychosis secondary methamphetamines. Patient was monitored in the emergency room for several hours after which he said he was no longer having thoughts of hurting anyone or himself and he was not feel like anybody was pursuing him. He was available by tele-psychiatry believe that this could be psychosis due to methamphetamines as well and does not recommend the patient for inpatient treatment. I spoke with Dr. SAMSON, who recommended discharge with the patient as well as 1 mg p.o. Risperdal for 2 weeks at night. She does not think the patient is a danger to himself or the community. At this point patient is very calm and I tend to agree with her currently. Patient agrees to return immediately for any concerning signs. Does have renal insufficiency which may be contributed from dehydration for the methamphetamines but states that he has been told he had high kidney numbers before. No signs of infection and physical exam is benign. Admit to discharge him with the wrist below tablets and strict return precautions. He states that he can call his doctor first thing in the morning. Departure Diagnosis: Primary Impression: Acute psychosis Additional Impressions: Methamphetamine abuse Renal insufficiency Condition: Stable Patient Instructions: Understanding Methamphetamine Abuse and Addiction, Renal Insufficiency Referrals: [facility] YOU HAVE RECEIVED A MEDICAL SCREENING EXAM AND THE RESULTS INDICATE THAT YOU DO NOT HAVE A CONDITION THAT REQUIRES URGENT TREATMENT IN THE EMERGENCY DEPARTMENT. FURTHER EVALUATION AND TREATMENT OF YOUR CONDITION CAN WAIT UNTIL YOU ARE SEEN IN YOUR DOCTORS OFFICE WITHIN THE NEXT 1-2 DAYS. IT IS YOUR RESPONSIBILITY TO MAKE AN APPOINTMENT FOR FOLOW-UP CARE. IF YOU HAVE A PRIMARY DOCTOR --you should call your primary doctor and schedule an appointment IF YOU DO NOT HAVE A PRIMARY DOCTOR YOU CAN CALL OUR PHYSICIAN REFERRAL HOTLINE AT IF YOU CAN NOT AFFORD TO SEE A PHYSICIAN YOU CAN CHOSE FROM THE FOLLOWING [facility] [address] [facility]. [facility] [address] [facility] [address] [facility] [address] [facility] [address] [facility]. [facility]. [address] Additional Instructions: Call your primary care doctor TOMORROW for an appointment during the next 1-2 days.See the doctor sooner or return here if your condition worsens before your appointment time. DEION NAJERA DO Oct 17, 2017 00:41
[2017-10-17 00:59] VITALS: BP 119/89; PULSE 70; RESP 20
== END 2017-10-17 01:01 | disposition home or self-care (01) ==
LOC: E/R 17:00
DX: F29 Unspecified psychosis not due to a substance or known physiological condition (principal); F15.10 Other stimulant abuse, uncomplicated; N28.9 Disorder of kidney and ureter, unspecified; I10 Essential (primary) hypertension; F17.210 Nicotine dependence, cigarettes, uncomplicated; Z95.0 Presence of cardiac pacemaker
CPT/HCPCS: 80053; 80306; 80307; 81003; 85025; 96372; 99284; J1630

== ENCOUNTER 2017-10-26 01:50 | Inpatient (IN) | payer MEDICARE, OTHER ==
[~2017-10-26] VITALS: Ht 177.8 cm; Wt 64.0 kg
[2017-10-26] VITALS (7 sets, daily range): BP systolic 125–133; BP diastolic 77; PULSE 63–122; RESP 17; TEMP 98.7; Ht 177.8 cm; Wt 64.0 kg
[~2017-10-26 01:50] MED LIST changes: +RIS1 PO
[2017-10-26] MEDS ORDERED: ONDANSETRON 4 MG INJ IV STA (02:09)
[2017-10-26] MEDS ORDERED: ASPIRIN 325 MG TAB PO STA (02:09)
[2017-10-26 02:54] LABS: BASOPHILS % 0.8 % (0.0-2.0); EOSINOPHILS # 0.1 10^3/ul (0.0-0.5); EOSINOPHILS % 1.6 % (0.0-7.0); HEMATOCRIT 34.2 % (42.0-52.0); HEMOGLOBIN 11.5 g/dl (14.0-18.0); LYMPHOCYTES # 1.7 10^3/ul (0.8-2.9); LYMPHOCYTES % 35.7 % (15.0-51.0); MEAN CORPUSCULAR HEMOGLOBIN 32.2 pg (29.0-33.0); MEAN CORPUSCULAR HGB CONC 33.6 g/dl (32.0-37.0); MEAN CORPUSCULAR VOLUME 95.8 fl (82.0-101.0); MEAN PLATELET VOLUME 9.2 fl (7.4-10.4); MONOCYTE # 0.5 10^3/ul (0.3-0.9); MONOCYTES % 10.1 % (0.0-11.0); NEUTROPHIL # 2.5 10^3/ul (1.6-7.5); NEUTROPHILS % 51.6 % (39.0-77.0); PLATELET COUNT 283 10^3/UL (140-415); RED BLOOD COUNT 3.57 10^6/ul (4.70-6.10); RED CELL DISTRIBUTION WIDTH 12.7 % (11.5-14.5); WHITE BLOOD COUNT 4.9 10^3/ul (4.8-10.8)
[2017-10-26 03:10] LABS: CREATININE 1.36 mg/dl (0.61-1.24); POTASSIUM 4.2 mmol/L (3.5-5.1)
[2017-10-26 03:22] LABS: TROPONIN-I 0.026 ng/ml (0.00-0.12)
--- NOTE | 2017-10-26 04:04 | RADRPT ---
PROCEDURE: XR Chest. CLINICAL INDICATION: Chest pain. TECHNIQUE: Single portable view of the chest was obtained COMPARISON: CR CHEST 12/19/2016; CR CHEST 12/01/2016; CR PORTABLE CHEST 07/21/2007 FINDINGS: The heart is enlarged. Left-sided dual chamber AICD is present with leads overlying the right atrium and right ventricle. The lungs are hyperinflated. No superimposed consolidation, pleural effusion, pulmonary edema, or pneumothorax is demonstrated. IMPRESSION: 1. No acute pulmonary disease. 2. Cardiomegaly. 3. Hyperinflated lungs. 4. AICD. RPTAT: HRSR Physician Marco Antonio Date Time Electronically viewed and signed by Physician Marco Antonio on 10/26/2017 04:04 RR/
--- NOTE | 2017-10-26 04:47 | ERD ---
ER Documentation Chief Complaint Chief Complaint CP x 5 hours, substernal, nonradiating, decreased after ntg [id number] HPI 66-year-old male presents with chest pain 5 hours with substernal and relieved with nitro in the ambulance. He also has had a lot of shortness of breath. Last night when he was exerting himself and had to stand up and fill out forms he felt extremely short of breath. Today he is feeling short of breath as well when he exerts himself. Mild shortness of breath currently at rest. Minimal chest pain. Does have a significant cardiac history with an AICD. ROS All systems reviewed and are negative except as per history of present illness. Medications Home Meds Active Scripts Risperidone* (Risperdal*) 1 Mg Tablet, 1 MG PO QHS, #14 TAB Prov:DEION NAJERA DO 10/17/17 Hydrocodone/Acetaminophen (Russell 5-325 Tablet) 1 Each Tablet, 1 TAB PO Q6H Y for PAIN, #7 TAB Prov:AURELIA MONROY DO 09/29/17 Cephalexin* (Keflex*) 500 Mg Capsule, 500 MG PO QID for 5 Days, CAP Prov:ALEX MONROYSTCECILIAS A. DO 09/29/17 Reported Medications Metoprolol Tartrate* (Lopressor*) 100 Mg Tablet, 100 MG PO BID, #60 TAB 09/29/17 Rivaroxaban* (Xarelto*) 20 Mg Tablet, 20 MG PO WITH DINNER, TAB 12/01/16 Benazepril Hcl* (Benazepril Hcl*) 10 Mg Tablet, 10 MG PO BID, #60 TAB 12/01/16 Amiodarone Hcl* (Amiodarone Hcl*) 200 Mg Tablet, 200 MG PO DAILY, #30 TAB 12/01/16 Discontinued Reported Medications Spironolactone* (Aldactone*) 5 Mg/Ml (COMPOUNDED) Susp, 2.5 MG PO DAILY for 30 Days, BOTTLE (COMPOUNDED) 12/01/16 Allergies Allergies: Coded Allergies: No Known Drug Allergy (Unverified Allergy, Mild, 10/26/17) PMhx/Soc History of Surgery: Yes (Heart surg age 5, 2x AICD placment, Epigastric hernia repair. 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 Head: Atraumatic Eyes: Normal Conjunctiva ENT: Normal External Ears, Nose and Mouth. Neck: Full range of motion..~Mild JVD Resp: Decreased bibasilar breath sounds. Cardio: Regular rate and rhythm, no murmurs Abd: Soft, non tender, non distended. Normal bowel sounds Skin: No petechiae or rashes Ext: No cyanosis, mild pedal edema with pulses intact Neur: Awake and alert oriented 3, no focal deficits Psych: Normal Mood and Affect Result Diagram: 10/26/17 0241 10/26/17 0241 Results 24 hrs Laboratory Tests Test 10/26/17 02:41 White Blood Count 4.910^3/ul Red Blood Count 3.5710^6/ul Hemoglobin 11.5g/dl Hematocrit 34.2% Mean Corpuscular Volume 95.8fl Mean Corpuscular Hemoglobin 32.2pg Mean Corpuscular Hemoglobin Concent 33.6g/dl Red Cell Distribution Width 12.7% Platelet Count 17172^3/UL Mean Platelet Volume 9.2fl Neutrophils % 51.6% Lymphocytes % 35.7% Monocytes % 10.1% Eosinophils % 1.6% Basophils % 0.8% Nucleated Red Blood Cells % 0.0/100WBC Neutrophils # 2.510^3/ul Lymphocytes # 1.710^3/ul Monocytes # 0.510^3/ul Eosinophils # 0.110^3/ul Basophils # 0.010^3/ul Nucleated Red Blood Cells # 0.010^3/ul Sodium Level 144mmol/L Potassium Level 4.2mmol/L Chloride Level 107mmol/L Carbon Dioxide Level 26mmol/L Anion Gap 15 Blood Urea Nitrogen 17mg/dl Creatinine 1.36mg/dl Glucose Level 107mg/dl Calcium Level 9.0mg/dl Troponin I 0.026ng/ml B-Type Natriuretic Peptide 1990PG/ML Current Medications Medications (Trade) Dose Ordered Sig/Bandar Route PRN Reason Start Time Stop Time Status Last Admin Dose Admin Aspirin (Aspirin) 325 mg ONCE STAT PO 10/26/17 02:09 10/26/17 02:10 DC 10/26/17 02:49 Ondansetron HCl (Zofran Inj) 4 mg ONCE STAT IV 10/26/17 02:09 10/26/17 02:10 DC 10/26/17 02:49 Ondansetron HCl (Zofran Inj) 4 mg ER BRIDGE PRN IV NAUSEA AND/OR VOMITING 10/26/17 05:00 10/27/17 04:59 Acetaminophen (Tylenol Tab) 650 mg ER BRIDGE PRN PO MILD PAIN/FEVER 10/26/17 05:00 10/27/17 04:59 Procedures/MDM Chest pain with increasing exertional dyspnea and patient with AICD elevated BNP. Was given additional aspirin on arrival. Chest pain resolved and on oxygen he was not short of breath at rest but on exertion he still was. No signs of acute cardiac ischemia currently. Does have abnormal EKG abnormal T waves. Condition the patient appearance is markedly improved from arrival. Patient is worried about his exertional shortness of breath and does not want to go home without further workup. Given IV Lasix in the ER. To be admitted for rule out and further workup. I spoke with Dr. Bingham about the admission. EKG interpretation: Sinus rhythm with first-degree AV block, 3 consecutive PVCs , no ST or T-wave changes concerning for acute ischemia. Abnormal homemaker companion interpretation: Normal sinus rhythm without arrhythmia Chest x-ray interpretation: Market cardiomegaly without evidence of santiago pulmonary edema, no infiltrates, pneumothorax, no fractures Departure Diagnosis: Primary Impression: Chest pain Additional Impressions: Congestive heart failure Exertional dyspnea Renal insufficiency Normocytic anemia Condition: Serious REINALDODEION Oct 26, 2017 04:45
[2017-10-26] MEDS ORDERED: ONDANSETRON 4 MG INJ IV PRN (05:00)
[2017-10-26] MEDS ORDERED: FUROSEMIDE 20 MG INJ IV ONE (05:00)
[2017-10-26] MEDS ORDERED: ACETAMINOPHEN 325 MG TAB PO PRN ×2 (05:00→07:00)
[2017-10-26] MEDS ORDERED: FUROSEMIDE 40 MG INJ IV ONE (07:00)
[2017-10-26] MEDS ORDERED: ONDANSETRON 4 MG TAB PO PRN (07:00)
[2017-10-26] MEDS ORDERED: DOCUSATE SODIUM 100 MG CAP PO PRN (07:00)
[2017-10-26] MEDS ORDERED: NACL 0.9% 3 ML SYG IV SCH (07:00)
[2017-10-26] MEDS ORDERED: BISACODYL (EC) 5 MG TAB PO PRN (07:00)
[2017-10-26] MEDS ORDERED: morphine 2 MG INJ IV PRN (07:00)
[2017-10-26 09:22] LABS: TROPONIN-I 0.027 ng/ml (0.00-0.12)
--- NOTE | 2017-10-26 09:31 | HP ---
Date/Time of Note Date/Time of Note DATE: 10/26/17 TIME: 09:31 Assessment/Plan VTE Prophylaxis VTE Prophylaxis Intervention: other (xarelto) Lines/Catheters IV Catheter Type (from Nrs): Saline Lock Assessment/Plan Assessment/Plan 1. Chest pain 2. Chronic substance abuse with history of remote hearing use and now amphetamine abuse likely contributing to her medical problems 3. Chronic cardiomyopathy likely drug-related status post AICD 4. Chronic kidney disease 5. COPD 6. Paroxysmal atrial fibrillation now with RVR 7. Tobacco abuse 8. CAD s/p CABG in the past Plan: Complete ACS rule out, echo reviewed from December 2016, no indication for repeat at this time We will get cardiology consultation as patient had continued chest discomfort and is now with RVR forming process line worker consult, patient has been counseled on the need to quit substance and tobacco use for the sake of his cardiac and overall health. Further interventions per clinical course HPI/ROS Admit Date/Time Admit Date/Time Oct 26, 2017 at 04:34 Hx of Present Illness 66-year-old male who presents with midsternal chest pain that he says occurs with exertion. Associated with shortness of breath intermittently. Denies palpitations. Was initially sinus rhythm on arrival but converted into atrial fibrillation with rapid ventricular response however patient is ambulance around the room and looks comfortable. Describes chest discomfort as tightness , it is nonradiating, seems like the kind of chest pain he had in the past. Denies headaches, denies fever, denies cough, denies abdominal pain or extremity swelling. ROS 12 point review if systems was done and pertinent findings are as noted. PMH/Family/Social Past Medical History 1. Chronic drug use 2. Chronic cardiomyopathy likely drug related status post AICD 3. Chronic kidney disease 4. COPD 5. Paroxysmal atrial fibrillation Past Surgical History * AICD placement Past Surgical Hx: other (cabg) Social History Alcohol Use: occasionally Smoking Status: Current every day smoker Drug Use: other (meth, prev heroine) Exam/Review of Systems Vital Signs Vitals VS - Last 72 Hours, by Label Date Time Temp Pulse Resp B/P Pulse Ox O2 Delivery O2 Flow Rate FiO2 10/26/17 08:13 71 10/26/17 07:53 98.2 70 17 125/77 99 10/26/17 05:50 77 10/26/17 05:04 98.7 82 18 163/92 98 Room Air 12/27/17 02:05 98.8 76 20 98 Vital Signs Date Time Temp Pulse Resp B/P Pulse Ox O2 Delivery O2 Flow Rate FiO2 10/26/17 08:13 71 10/26/17 07:53 98.2 125/77 99 10/26/17 05:04 Room Air Exam Exam Constitutional: alert, oriented, asthenic male Head: atraumatic, normocephalic Neck: non-tender, supple Respiratory: clear to auscultation, long surgical scar on chest and upper abd from prev cabg Cardiovascular: irregular rate and rapid rhythm, AICD noted without evidence of erythema or inflammation around it. Gastrointestinal: S/ NT / ND / +BS Extremities: no edema, good radial pulses Labs Result Diagram: 10/26/1724010/26/17240 Medications Medications Current Medications Ondansetron HCl (Zofran Tab) 4 mg Q6H PRN PO NAUSEA AND/OR VOMITING; Start at 07:00 Nitroglycerin (Nitroglycerin (Sl Tab) 0.4 Mg) 1 tab Q5M PRN SL CHEST PAIN; Start 10/26/17 at 07:00 Acetaminophen (Tylenol Tab) 650 mg Q6H PRN PO PAIN LEVEL 1-3 OR FEVER; Start 10/26/17 at 07:00 Morphine Sulfate (morphine) 2 mg Q4H PRN IV PAIN LEVEL 7-10 Last administered on 10/26/17t 08:48; Admin Dose 2 MG; Start 10/26/17 at 07:00 Docusate Sodium (Colace) 100 mg Q12H PRN PO CONSTIPATION; Start 10/26/17 at 07 :00 Bisacodyl (Dulcolax) 5 mg DAILY PRN PO CONSTIPATION; Start 10/26/17 at 07:00 Procedures Procedures Laboratory Tests Test 10/26/17 02:41 10/26/17 08:31 White Blood Count 4.910^3/ul Red Blood Count 3.5710^6/ul Hemoglobin 11.5g/dl Hematocrit 34.2% Mean Corpuscular Volume 95.8fl Mean Corpuscular Hemoglobin 32.2pg Mean Corpuscular Hemoglobin Concent 33.6g/dl Red Cell Distribution Width 12.7% Platelet Count 83086^3/UL Mean Platelet Volume 9.2fl Neutrophils % 51.6% Lymphocytes % 35.7% Monocytes % 10.1% Eosinophils % 1.6% Basophils % 0.8% Nucleated Red Blood Cells % 0.0/100WBC Neutrophils # 2.510^3/ul Lymphocytes # 1.710^3/ul Monocytes # 0.510^3/ul Eosinophils # 0.110^3/ul Basophils # 0.010^3/ul Nucleated Red Blood Cells # 0.010^3/ul Sodium Level 144mmol/L Potassium Level 4.2mmol/L Chloride Level 107mmol/L Carbon Dioxide Level 26mmol/L Anion Gap 15 Blood Urea Nitrogen 17mg/dl Creatinine 1.36mg/dl Glucose Level 107mg/dl Calcium Level 9.0mg/dl Troponin I 0.026ng/ml Pending B-Type Natriuretic Peptide 1990PG/ML Creatine Kinase 126IU/L Creatine Kinase Index Pending Creatinine Kinase MB (Mass) Pending Current Medications Medications (Trade) Dose Ordered Sig/Bandar Route PRN Reason Start Time Stop Time Status Last Admin Dose Admin Aspirin (Aspirin) 325 mg ONCE STAT PO 10/26/17 02:09 10/26/17 02:10 DC 10/26/17 02:49 325 MG Ondansetron HCl (Zofran Inj) 4 mg ONCE STAT IV 10/26/17 02:09 10/26/17 02:10 DC 10/26/17 02:49 4 MG Ondansetron HCl (Zofran Inj) 4 mg ER BRIDGE PRN IV NAUSEA AND/OR VOMITING 10/26/17 05:00 10/27/17 04:59 Acetaminophen (Tylenol Tab) 650 mg ER BRIDGE PRN PO MILD PAIN/FEVER 10/26/17 05:00 10/27/17 04:59 Furosemide (Lasix) 20 mg ONCE ONCE IV 10/26/17 05:00 10/26/17 05:01 DC 10/26/17 05:04 20 MG IV Flush (NS 3 ml) 3 ml PER PROTOCOL IV 10/26/17 07:00 Ondansetron HCl (Zofran Tab) 4 mg Q6H PRN PO NAUSEA AND/OR VOMITING 10/26/17 07:00 Furosemide (Lasix) 40 mg ONCE ONCE IV 10/26/17 07:00 10/26/17 07:01 DC 10/26/17 08:19 40 MG Nitroglycerin (Nitroglycerin (Sl Tab) 0.4 Mg) 1 tab Q5M PRN SL CHEST PAIN 10/26/17 07:00 Acetaminophen (Tylenol Tab) 650 mg Q6H PRN PO PAIN LEVEL 1-3 OR FEVER 10/26/17 07:00 Morphine Sulfate (morphine) 2 mg Q4H PRN IV PAIN LEVEL 7-10 10/26/17 07:00 10/26/17 08:48 2 MG Docusate Sodium (Colace) 100 mg Q12H PRN PO CONSTIPATION 10/26/17 07:00 Bisacodyl (Dulcolax) 5 mg DAILY PRN PO CONSTIPATION 10/26/17 07:00 PROCEDURE: XR Chest. CLINICAL INDICATION: Chest pain. TECHNIQUE: Single portable view of the chest was obtained COMPARISON: CR CHEST 12/19/2016; CR CHEST 12/01/2016; CR PORTABLE CHEST 07/21/2007 FINDINGS: The heart is enlarged. Left-sided dual chamber AICD is present with leads overlying the right atrium and right ventricle. The lungs are hyperinflated. No superimposed consolidation, pleural effusion, pulmonary edema, or pneumothorax is demonstrated. IMPRESSION: 1. No acute pulmonary disease. 2. Cardiomegaly. 3. Hyperinflated lungs. 4. AICD. RPTAT: HRSR Physician Marco Antonio Date Time Electronically viewed and signed by Roxann Encinas Physician on 10/26/2017 04 :04 RR/ CC: GREEN,DEION DO FEASH Garcia 27, 2017 09:31
[2017-10-26 09:32] LABS: CK-MB 2.02 ng/ml (0.0-2.4)
[2017-10-26] MEDS: NITROGLYCERIN (SL) 0.4 MG TAB SL PRN ×3 (09:37→09:53)
[2017-10-26] MEDS ORDERED: BENAZEPRIL 10 MG TAB PO SCH (10:00)
[2017-10-26] MEDS ORDERED: METOPROLOL 100 MG TAB PO SCH (10:00)
[2017-10-26] MEDS ORDERED: HYDROCODONE/APAP (5/325) TAB PO PRN (10:00)
[2017-10-26] MEDS ORDERED: AMIODARONE 200 MG TAB PO SCH ×2 (10:00→21:00)
--- NOTE | 2017-10-26 10:28 | RADRPT ---
Echocardiogram Report Patient Name: DYLON HASSAN Gender: Male Date: 1950 Study Date: 26-Oct-2017 Activities Concierge: Gurinder Gustafson [facility] Location: [id number] Ref. Physician: NIRANJAN GALARZA Quality: Good Procedures: Transthoracic echocardiogram with complete 2D, M-Mode, and doppler examination. Indications: Chest Pain. 2D/M Mode Doppler Measurement Value Normal Ranges Measurement Value Normal Ranges LVIDd 2D 5.8 3.5 - 5.6 cm AV Peak Mp 1.6 m/sec LVIDs 2D 4.6 2.1 - 4.1 cm AV Peak PG 10.0 mmHg LVPWd 2D 1.0 0.6 - 1.1 cm LVOT Peak Mp 1.2 m/sec IVSd 2D 1.1 0.6 - 1.1 cm LVOT Peak PG 6.2 mmHg AoR Diam 2D 3.1 2.0 - 3.7 cm MV E Peak Mp 0.6 m/sec EDV 2D 168.4 cm3 MV A Peak Mp 0.7 m/sec ESV 2D 96.8 cm3 MV E/A 0.8 LA Dimen 2D 4.1 2.3 - 4.0 cm MV Decel Time 274 msec MV Decel [place] 2 MV E/A 0.8 TR Peak Mp 3.4 m/sec TR Peak PG 47.0 mmHg RVSP 55.0 mmHg Findings Left Ventricle: Mild enlargement of left ventricle cavity. Moderate global left ventricular systolic dysfunction. Ejection fraction is visually estimated at 35 %. Tissue Doppler/Mitral Doppler indices are consistent with pseudonormalization with mildly elevated left atrial pressure (Stage II diastolic dysfunction). Right Ventricle: Normal right ventricular size. Normal right ventricular systolic function. Linear artifact in right ventricle suggestive of catheter, pacer lead, or ICD lead. Left Atrium: There is moderate enlargement of left atrium. Right Atrium: There is moderate enlargement of right atrium. Mitral Valve: Mitral valve leaflets appear mildly thickened. Mild mitral annular calcification. Trace mitral regurgitation. Aortic Valve: No significant aortic stenosis or insufficiency. Aortic cusps appear mildly calcified. Tricuspid Valve: Normal appearance of the tricuspid valve. Estimated peak PA systolic pressure 55 mmHg. There is mild to moderate tricuspid regurgitation. Pulmonic Valve: Normal pulmonic valve appearance. There is trace pulmonic regurgitation. Pericardium: Normal pericardium with no significant pericardial effusion. Aorta: Normal aortic root. IVC: Dilated IVC with respiratory collapse consistent with elevated right atrial pressure. Conclusions 1.Mild enlargement of left ventricle cavity. Moderate global left ventricular systolic dysfunction. Ejection fraction is visually estimated at 35 %. Stage II diastolic dysfunction. 2.There is mild to moderate tricuspid regurgitation. 3.Linear artifact in right ventricle suggestive of pacer lead or ICD lead. 4.Estimated peak PA systolic pressure 55 mmHg based on RA pressure of 8 mmHg. Electronically Signed By: Daniel rFeeman 26-Oct-2017 10:27:47 -0800 Patient Name: DYLON HASSAN Study Date: 26-Oct-[id number]
[2017-10-26] MEDS ORDERED: METOPROLOL 5 MG INJ IV ONE (10:30)
[2017-10-26] MEDS ORDERED: SOD CHLORIDE 0.9% 500 ML IV ONE (10:30)
--- NOTE | 2017-10-26 15:12 | CONS ---
DATE OF ADMISSION: 10/26/2017 DATE OF CONSULTATION: 10/26/2017 REASON FOR CONSULTATION: Cardiomyopathy, congestive heart failure, cardiac arrhythmia. REQUESTING PHYSICIAN: Dr. Miramontes from the hospitalist service. HISTORY OF PRESENT ILLNESS: Mr. Haney is a 66-year-old male with a history of cardiomyopathy with decreased left ventricular ejection fraction, approximately 35% by echo December 2016, status post AICD, hypertension, dyslipidemia, chronic substance abuse with methamphetamines, cardiac arrhyt hmia on amiodarone, who had initially presented with chest pain and is admitted to the hospital. Si nce admit, troponins negative x2. The patient underwent a 2D echo with EF of 35%. The patient at t his time denies chest pain, shortness of breath. PAST MEDICAL HISTORY: As above in HPI. MEDICATIONS CURRENTLY IN HOSPITAL: 1. Risperdal. 2. Xarelto 20 mg daily. 3. Amiodarone 200 mg daily. 4. Benazepril 10 mg b.i.d. 5. Metoprolol 100 mg b.i.d. 6. Sublingual nitroglycerin p.r.n. 7. Tylenol p.r.n. 8. Morphine p.r.n. 9. Colace p.r.n. 10. Dulcolax. ALLERGIES: NO KNOWN DRUG ALLERGIES. SOCIAL HISTORY: Positive tobacco, positive substance abuse. Social ETOH. FAMILY HISTORY: Negative for sudden cardiac or early CAD. REVIEW OF SYSTEMS: As above in HPI. CONSTITUTIONAL: No fevers, chills. PULMONARY: No current shortness of breath. CARDIOVASCULAR: No current chest pain. GASTROINTESTINAL: No vomiting. GENITOURINARY: No hematuria. MUSCULOSKELETAL: Degenerative joint disease. PSYCHIATRIC: Positive psych history. NEUROLOGIC: No documented CVA. PHYSICAL EXAMINATION VITAL SIGNS: Temperature of 98.9, blood pressure most recent 133/77, pulse 85, respiratory rate 17, saturating 99%. GENERAL: The patient is alert, awake, no acute distress. NECK: JVP approximately 9 cm of water. CHEST: Fair air movement throughout. HEART: Regular rate and rhythm. Normal S1, S2, I/ systolic murmur, laterally displaced PMI. ABDOMEN: Positive bowel sounds, soft. EXTREMITIES: No edema, 1+ pulses bilaterally posterior tibial. LABORATORY DATA: As above in HPI. No further labs for my review at this time. IMAGING STUDIES: As above in HPI. No further imaging my review at this time. ELECTROCARDIOGRAM: Revealed initially sinus rhythm, first-degree AV block, borderline IVCD and with tachycardia and atrial fibrillation, and mild biphasic T-wave abnormalities in the lateral leads. IMPRESSION: 1. Chest pain, assess for acute coronary syndrome, with the patient having negative troponins x2, w ith an EF that is unchanged, and a stress test in December 2016, revealing no ischemia, EF of 34%. 2. Abnormal electrocardiogram. 3. Paroxysmal atrial fibrillation with rapid ventricular response, now back in sinus rhythm. 4. Hypertension, well controlled. 5. Substance abuse. 6. Ongoing tobacco usage. 7. Renal failure. RECOMMENDATIONS: 1. At this time, would maintain the patient on telemetry monitoring to follow rhythm and rate close ly. 2. Continue the patient's amiodarone, we will increase to b.i.d. dosing in an attempt to maintain t he patient better in sinus rhythm. Continue Xarelto systemic anticoagulation for prevention of thro mboembolic complications. Continue the patient's Benazepril for afterload reduction and metoprolol for treatment of cardiomyopathy and hypertension. 3. Follow the patient's volume status closely with probable need to resume Lasix shortly likely at 20 p.o. daily. 4. Follow for recurrent arrhythmia. 5. Continue follow up troponin to complete rule out. Thank you for allowing me to take part in the care of this patient. I will continue to follow along very closely with you. Further recommendations will be made as the patient progresses through his inpatient hospital clinical course. Dictated By: GERDA ESPINOSA/VIANCA Conf#: [id number] DID#: [id number] CC: ASH MIRAMONTES MD;*EndCC*
[2017-10-26] MEDS ORDERED: RIVAROXABAN 20 MG TABLET PO SCH (18:05)
[2017-10-26] MEDS ORDERED: RISPERIDONE 1 MG TAB PO SCH (21:00)
--- NOTE | 2017-10-28 16:53 | RADRPT ---
Vent Rate: 117 bpm RR Interval: 0 msec MA Interval: 0 msec QRS Duration: 100 msec QT Interval: 354 msec QTC Interval: 493 msec P-R-T [place]: 0 - 70 - -67 degrees Atrial fibrillation with rapid ventricular response Nonspecific ST and T wave abnormality , probably digitalis effect Abnormal ECG Electronically Signed By: Abdias Palacio [id number]
== END 2017-10-26 16:21 | disposition left against medical advice (07) | DRG 313 ==
LOC: E/R 01:50 → MS4 04:34
PROVIDERS: ADMIT Family Medicine; ATTEND Family Medicine
DX: R07.9 Chest pain, unspecified (principal); I25.10 Atherosclerotic heart disease of native coronary artery without angina pectoris; I42.7 Cardiomyopathy due to drug and external agent; I48.0 Paroxysmal atrial fibrillation; F15.10 Other stimulant abuse, uncomplicated; Z95.810 Presence of automatic (implantable) cardiac defibrillator; J44.9 Chronic obstructive pulmonary disease, unspecified; Z95.1 Presence of aortocoronary bypass graft; F17.210 Nicotine dependence, cigarettes, uncomplicated; I10 Essential (primary) hypertension; I12.9 Hypertensive chronic kidney disease with stage 1 through stage 4 chronic kidney disease, or unspecified chronic kidney disease; N18.9 Chronic kidney disease, unspecified
CPT/HCPCS: 36415; 71010; 80048; 82550; 82553; 83880; 84484; 85025; 93005; 93306; 96374; 96375; J1940; J2270; J2405; J7040